=== PATIENT | male | born 1965 | race African-American/Black ===

== ENCOUNTER 2020-09-16 16:28 | Emergency (ER) | payer SELFPAY | END 2020-09-16 18:15 | disposition home or self-care (01) | LOC: ERS 16:28 | DX: L03.011 Cellulitis of right finger (principal); Z87.891 Personal history of nicotine dependence ==

== ENCOUNTER 2020-10-01 19:05 | Emergency (ER) | payer SELFPAY ==
[2020-10-01] MEDS ORDERED: Lidocaine 1% PF 5 ML VIAL ONE (20:19)
[2020-10-01] MEDS ORDERED: Bupivacaine 0.5% 10 ML VIAL ONE ×2 (20:19→21:00)
[2020-10-01] MEDS ORDERED: Lidocaine 4% Cream 5 GM TUBE w/ Tegaderm ONE (20:59)
== END 2020-10-01 23:05 | disposition home or self-care (01) ==
LOC: ERS 19:05
DX: L03.011 Cellulitis of right finger (principal); F17.210 Nicotine dependence, cigarettes, uncomplicated
CPT/HCPCS: 10060; J3490

== ENCOUNTER 2020-10-08 21:07 | Inpatient (IN) | payer SELFPAY ==
[2020-10-08 23:54] LABS: #Eosinphils 0.2 thou/uL (0.0-0.7); #Lymphocytes 2.5 thou/uL (1.20-3.40); #Monocytes 0.3 thou/uL (0.11-0.59); #Neutrophils 4.1 thou/uL (1.40-6.50); %Basophils 0.6 % (0.0-1.0); %Eosinophils 3.5 % (0.0-10.0); %Lymphocytes 35.2 % (21.0-51.0); %Monocytes 4.2 % (0.0-10.0); %Neutrophils 56.5 % (42.0-75.0); Hemoglobin 15.8 g/dL (14.0-18.0); Mean Corpuscular Hemoglobin 28.6 pg (27.0-31.0); Mean Corpuscular Volume 86.5 fL (78.0-98.0); Mean Platelet Volume 7.9 fL (7.4-10.4); Platelet Count 240 thou/uL (130-400); RBC Distribution Width 13.4 % (11.5-14.5); Red Blood Cell (RBC) Count 5.53 mill/uL (4.70-6.10); White Blood Cell (WBC) Count 7.2 thou/uL (4.8-10.8)
[2020-10-09 00:13] LABS: ALT (SGPT) 19 U/L (8-55); AST (SGOT) 14 U/L (5-34); Albumin 3.8 g/dL (3.5-5.0); Alkaline Phosphatase 80 U/L (40-110); Anion Gap 10 mmol/L (10-20); BUN (Urea Nitrogen) 12 mg/dL (8.4-25.7); Bilirubin, Total 0.3 mg/dL (0.2-1.2); Calc. Creatinine Clearance 0 mL/min (70-130); Calcium 9.5 mg/dL (7.8-10.44); Carbon Dioxide 23 mmol/L (22-29); Chloride 107 mmol/L (98-107); Globulin 3.5 g/dL (2.4-3.5); Glucose 145 mg/dL (70-105); Potassium 3.7 mmol/L (3.5-5.1); Protein, Total 7.3 g/dL (6.0-8.3); Sodium 136 mmol/L (136-145)
[2020-10-09] MEDS ORDERED: Morphine 4 MG/ML VIAL ONE (01:31)
[2020-10-09] MEDS ORDERED: Clindamycin/D5W 600 mg/50 ml Premix Bag ONE (01:31)
[2020-10-09] MEDS ORDERED: Ondansetron PF 4 MG/2 ML Vial ONE (01:31)
[2020-10-09] MEDS: traMADol HCl 50 MG TAB PO PRN ×2 (04:10→10:18)
[2020-10-09] MEDS: Acetaminophen 500 MG TAB PO PRN ×2 (04:11→14:57)
[2020-10-09 06:28] VITALS: BMI 37.0
[2020-10-09] MEDS: Dextrose 5 % And 0.9 % NaCl 1,000 ML IV SCH ×2 (06:51→14:59)
[2020-10-09] MEDS: Ampicillin/Sulbactam 3 GM in Sodium Chloride 0.9% 100 ML IVPB SCH ×3 (09:56→21:06)
[2020-10-09 11:00] LABS: SARS-CoV-2 PCR by NAA Not Detected (NotDetected)
[2020-10-09] MEDS ORDERED: CEFAZOLIN 2 GM in Premix Bag 1 BAG IVPB SCH (14:15)
[2020-10-09] MEDS ORDERED: NIFEdipine XL 60 MG TAB PO SCH (18:00)
[2020-10-09] MEDS ORDERED: hydrALAZINE 20 MG/ML VIAL SLOW IVP PRN (18:01)
[2020-10-09] MEDS ORDERED: Labetalol HCl 100 MG/20 ML VIAL SLOW IVP PRN (18:01)
[2020-10-09] MEDS ORDERED: cloNIDine 0.1 MG TAB PO PRN (18:10)
[2020-10-09] MEDS: Nicotine 14 MG PATCH TD SCH (21:06)
[2020-10-09] MEDS: HYDROcodone/Acetaminophen 10/325 mg Tablet PO PRN (21:06)
[2020-10-10] MEDS: Ampicillin/Sulbactam 3 GM in Sodium Chloride 0.9% 100 ML IVPB SCH ×4 (03:53→21:33)
[2020-10-10] MEDS: HYDROcodone/Acetaminophen 10/325 mg Tablet PO PRN (03:53)
[2020-10-10 05:28] LABS: #Basophils 0.1 thou/uL (0.0-0.2); #Eosinphils 0.2 thou/uL (0.0-0.7); #Lymphocytes 3.1 thou/uL (1.20-3.40); #Monocytes 0.5 thou/uL (0.11-0.59); #Neutrophils 4.1 thou/uL (1.40-6.50); %Basophils 0.9 % (0.0-1.0); %Eosinophils 2.9 % (0.0-10.0); %Lymphocytes 38.7 % (21.0-51.0); %Monocytes 6.3 % (0.0-10.0); %Neutrophils 51.2 % (42.0-75.0); Hemoglobin 16.3 g/dL (14.0-18.0); Mean Corpuscular HGB CONC 31.8 g/dL (32.0-36.0); Mean Corpuscular Hemoglobin 27.9 pg (27.0-31.0); Mean Corpuscular Volume 87.7 fL (78.0-98.0); Platelet Count 249 thou/uL (130-400); RBC Distribution Width 13.6 % (11.5-14.5); Red Blood Cell (RBC) Count 5.86 mill/uL (4.70-6.10)
[2020-10-10 05:44] LABS: Anion Gap 12 mmol/L (10-20); BUN (Urea Nitrogen) 13 mg/dL (8.4-25.7); Calc. Creatinine Clearance 124 mL/min (70-130); Calcium 9.6 mg/dL (7.8-10.44); Carbon Dioxide 22 mmol/L (22-29); Chloride 105 mmol/L (98-107); Glucose 105 mg/dL (70-105); Potassium 4.2 mmol/L (3.5-5.1); Sodium 135 mmol/L (136-145)
[2020-10-10] MEDS ORDERED: Fentanyl 100 MCG/2 ML VIAL ONE ×2 (16:49→18:11)
[2020-10-10] MEDS ORDERED: Bacitracin Zinc Ointment 30 gm TUBE ONE (16:58)
[2020-10-10] MEDS ORDERED: Bupivacaine PF 0.5% 30 ML VIAL ONE (16:58)
[2020-10-10] MEDS ORDERED: Thrombin 5000 UNITS/5 ML VIAL ONE (16:58)
[2020-10-10] MEDS ORDERED: Neomycin-Polymyxin 1 ML AMP ONE (16:58)
[2020-10-10] MEDS ORDERED: PROPOFOL 200 MG/20 ML VIAL ONE (17:42)
[2020-10-10] MEDS ORDERED: Ondansetron PF 4 MG/2 ML Vial ONE (17:42)
[2020-10-10] MEDS ORDERED: ePHEDrine Sulfate 50 MG/10 ML VIAL ONE (17:42)
[2020-10-10] MEDS ORDERED: PHENYLEPHRINE-NS 100 MCG/ML 10 ML SYRINGE ONE (17:42)
[2020-10-10] MEDS ORDERED: Tobramycin Sulfate 1.2 GM VIAL ONE ×2 (18:19→18:22)
[2020-10-10] MEDS ORDERED: Tobramycin 80 MG/2 ML VIAL ONE (18:21)
[2020-10-10] MEDS ORDERED: Promethazine HCl 25 MG/ML VIAL IVPB PRN (19:16)
[2020-10-10] MEDS ORDERED: HYDROmorphone 2 MG/ML VIAL SLOW IVP PRN (19:16)
[2020-10-10] MEDS ORDERED: PACU-Morphine 4MG/ML VIAL SLOW IVP PRN (19:16)
[2020-10-10] MEDS ORDERED: Promethazine HCl 25 MG/ML VIAL IM PRN (19:16)
[2020-10-10] MEDS ORDERED: Ondansetron HCl/PF 4 MG/2 ML Vial IVP PRN (19:16)
[2020-10-10] MEDS ORDERED: hydrALAZINE 20 MG/ML VIAL SLOW IVP PRN (19:17)
[2020-10-10] MEDS ORDERED: Ketorolac Tromethamine 30 MG/ML VIAL ONE (19:28)
[2020-10-10] MEDS: NIFEdipine XL 90 MG TAB PO SCH (20:54)
[2020-10-10] MEDS: Nicotine 14 MG PATCH TD SCH (21:34)
[2020-10-11] MEDS: Ketorolac Tromethamine 30 MG/ML VIAL IVP SCH ×4 (00:59→20:25)
[2020-10-11] MEDS: Ampicillin/Sulbactam 3 GM in Sodium Chloride 0.9% 100 ML IVPB SCH ×4 (03:11→20:26)
[2020-10-11] MEDS: Morphine 4 MG/ML VIAL SLOW IVP PRN ×4 (03:11→17:07)
[2020-10-11] MEDS: HYDROcodone/Acetaminophen 10/325 mg Tablet PO PRN ×4 (09:09→23:55)
[2020-10-11] MEDS: Carvedilol 6.25 MG TAB PO SCH ×2 (09:09→16:18)
[2020-10-11] MEDS: NIFEdipine XL 90 MG TAB PO SCH (17:09)
[2020-10-11] MEDS: Nicotine 14 MG PATCH TD SCH (23:31)
[2020-10-11] MEDS: Acetaminophen 500 MG TAB PO PRN (23:56)
[2020-10-12] MEDS: Ketorolac Tromethamine 30 MG/ML VIAL IVP SCH ×3 (02:02→14:12)
[2020-10-12] MEDS: Morphine 4 MG/ML VIAL SLOW IVP PRN (02:02)
[2020-10-12] MEDS: HYDROcodone/Acetaminophen 10/325 mg Tablet PO PRN ×3 (05:09→14:12)
[2020-10-12] MEDS: Ampicillin/Sulbactam 3 GM in Sodium Chloride 0.9% 100 ML IVPB SCH ×2 (05:09→09:13)
[2020-10-12] MEDS: Carvedilol 6.25 MG TAB PO SCH (09:13)
[2020-10-12 12:43] VITALS: BP 158/111; TEMP 98.5
== END 2020-10-12 15:24 | disposition home or self-care (01) | DRG 516 ==
LOC: ERS 21:07 → SURG A 10-09 02:05 → OBSVTOIN 10-09 16:45
PROVIDERS: ADMIT Student in an Organized Health Care Education/Training Program; ATTEND Internal Medicine
PROC: 0PBR0ZZ Excision of Right Thumb Phalanx, Open Approach (ICD-10-PCS; principal; 2020-10-09)
DX: M86.141 Other acute osteomyelitis, right hand (principal); L02.511 Cutaneous abscess of right hand; L03.011 Cellulitis of right finger; I10 Essential (primary) hypertension; E66.01 Morbid (severe) obesity due to excess calories; F17.210 Nicotine dependence, cigarettes, uncomplicated; Z68.37 Body mass index [BMI] 37.0-37.9, adult
CPT/HCPCS: 36415; 76000; 80048; 80053; 85025; 85652; 86140; 87070; 87205; 88305; 96365; 96375; C1713; G0378; J0295; J0690; J1885; J2270; J2405; J2704; J3010; J3260; J3490; S0020; U0003; U0005

== ENCOUNTER 2020-11-24 17:04 | Inpatient (IN) | payer SELFPAY ==
[~2020-11-24 17:04] MED LIST: Iopamidol-370 76% 500 ML 1 ML ONE
[2020-11-24] MEDS ORDERED: Ketorolac Tromethamine 30 MG/ML VIAL ONE (17:44)
[2020-11-24] MEDS ORDERED: Acetaminophen 500 MG TAB ONE (17:44)
[2020-11-24 18:02] LABS: Hemoglobin 14.9 g/dL (14.0-18.0); Mean Corpuscular HGB CONC 33.2 g/dL (32.0-36.0); Mean Corpuscular Hemoglobin 28.4 pg (27.0-31.0); Mean Corpuscular Volume 85.5 fL (78.0-98.0); Mean Platelet Volume 7.6 fL (7.4-10.4); Platelet Count 187 thou/uL (130-400); RBC Distribution Width 13.9 % (11.5-14.5); Red Blood Cell (RBC) Count 5.23 mill/uL (4.70-6.10); White Blood Cell (WBC) Count 4.7 thou/uL (4.8-10.8)
[2020-11-24 18:30] LABS: Band 14 % (5-11); Lymphocytes 31 % (21-51); MDiff Complete? YES; Monocytes 18 % (0-10); Neutrophil 35 % (42-75); Nucleated RBC 1 % (0); Platelet Morphology Comment Appears Adequate; RBC Morphology Normal; Reactive Lymphocytes 1 % (0-10)
[2020-11-24 18:49] LABS: CKMB 1.1 ng/mL (0-6.6)
[2020-11-24 18:53] LABS: SARS-CoV-2 NAA Rapid Test DETECTED (NotDetected)
[2020-11-24 19:02] LABS: ALT (SGPT) 30 U/L (8-55); AST (SGOT) 32 U/L (5-34); Albumin 3.6 g/dL (3.5-5.0); Alkaline Phosphatase 71 U/L (40-110); Anion Gap 11 mmol/L (10-20); BUN (Urea Nitrogen) 8 mg/dL (8.4-25.7); Bilirubin, Total 0.3 mg/dL (0.2-1.2); Calc. Creatinine Clearance 0 mL/min (70-130); Calcium 9.2 mg/dL (7.8-10.44); Carbon Dioxide 23 mmol/L (22-29); Chloride 102 mmol/L (98-107); Globulin 3.9 g/dL (2.4-3.5); Glucose 128 mg/dL (70-105); Potassium 4.1 mmol/L (3.5-5.1); Protein, Total 7.5 g/dL (6.0-8.3); Sodium 132 mmol/L (136-145)
[2020-11-24 19:18] LABS: Bacteria/HPF None Seen HPF (None Seen); Bilirubin Negative (Negative); Blood, Urine Negative (Negative); Clarity Clear (Clear); Glucose, Urine (Dipstick) Normal (Negative); Ketone, Urine Negative (Negative); Leukocyte Negative Leu/uL (Negative); Nitrite Negative (Negative); Protein, Urine (Dipstick) 100 mg/dL (Neg-Trace); RBC/HPF 0-3 HPF (0-3); Squamous Epithelial None Seen HPF (0-3); Urobilinogen Normal mg/dL (Less than 2); WBC/HPF 0-3 HPF (0-3)
[2020-11-24 23:56] LABS: Troponin I 0.064 ng/mL (< 0.028)
[2020-11-25] MEDS ORDERED: Aspirin Chewable 81 MG TAB ONE ×2 (00:04→09:07)
[2020-11-25] MEDS ORDERED: Pharmacy to Dose REMDESIVIR IVPB PRN (01:18)
[2020-11-25] MEDS ORDERED: Acetaminophen 650 MG Suppository PR PRN (01:22)
[2020-11-25] MEDS ORDERED: Ondansetron ODT 4 MG TAB PO PRN (01:22)
[2020-11-25] MEDS ORDERED: Ondansetron PF 4 MG/2 ML Vial IVP PRN (01:22)
[2020-11-25] MEDS ORDERED: Ivermectin 3 MG TAB PO SCH (01:30)
[2020-11-25] MEDS ORDERED: Nitroglycerin 0.4 MG TAB (25 Tab Bottle) SL PRN (01:47)
[2020-11-25 02:24] LABS: Troponin I 0.075 ng/mL (< 0.028)
[2020-11-25] MEDS ORDERED: Acetaminophen 325 MG TAB ONE ×2 (05:09→13:53)
[2020-11-25] MEDS: Acetaminophen 325 MG TAB PO PRN ×3 (05:12→21:53)
[2020-11-25 06:48] LABS: #Lymphocytes 1.4 thou/uL (1.20-3.40); #Monocytes 0.6 thou/uL (0.11-0.59); #Neutrophils 1.8 thou/uL (1.40-6.50); %Eosinophils 0.3 % (0.0-10.0); %Lymphocytes 35.7 % (21.0-51.0); %Monocytes 14.9 % (0.0-10.0); %Neutrophils 48.2 % (42.0-75.0); Hemoglobin 15.9 g/dL (14.0-18.0); Mean Corpuscular HGB CONC 32.2 g/dL (32.0-36.0); Mean Corpuscular Hemoglobin 27.9 pg (27.0-31.0); Mean Corpuscular Volume 86.7 fL (78.0-98.0); Mean Platelet Volume 7.8 fL (7.4-10.4); Platelet Count 192 thou/uL (130-400); RBC Distribution Width 13.9 % (11.5-14.5); White Blood Cell (WBC) Count 3.8 thou/uL (4.8-10.8)
[2020-11-25 07:14] LABS: Anion Gap 11 mmol/L (10-20); BUN (Urea Nitrogen) 9 mg/dL (8.4-25.7); Calc. Creatinine Clearance 0 mL/min (70-130); Calcium 9.2 mg/dL (7.8-10.44); Carbon Dioxide 24 mmol/L (22-29); Cardiac Risk 5.4 (Less than 4.5); Chloride 104 mmol/L (98-107); Cholesterol 185 mg/dl (< 200 Desired); Glucose 118 mg/dL (70-105); HDL Cholesterol 34 mg/dL (>60 Neg Risk); LDL Cholesterol, Calculated 121 mg/dL; Potassium 3.9 mmol/L (3.5-5.1); Sodium 135 mmol/L (136-145); Triglycerides 149 mg/dL (Less than 150)
[2020-11-25] MEDS ORDERED: Amlodipine 5 MG TAB PO SCH (09:00)
[2020-11-25] MEDS ORDERED: Famotidine 20 MG TAB ONE (09:07)
[2020-11-25] MEDS: Zinc Sulfate 220 MG CAP PO SCH (10:00)
[2020-11-25] MEDS: Ascorbic Acid 500 mg Chewable Tablet PO SCH (10:00)
[2020-11-25] MEDS: Famotidine 20 MG TAB PO SCH ×2 (10:00→21:51)
[2020-11-25] MEDS: Ivermectin 3 MG TAB PO SCH (10:00)
[2020-11-25] MEDS: Cholecalciferol 1,000 UNITS (25 MCG) TAB PO SCH (10:00)
[2020-11-25] MEDS: Aspirin 81 mg Enteric Coated Tablet PO SCH (10:00)
[2020-11-25] MEDS: Colchicine 0.6 MG TAB PO SCH ×2 (10:00→21:51)
[2020-11-25 17:11] LABS: HIV (1/2) Antibody/Antigen Non-Reactive (NonReactive); HIV 1/2 INDEX 0.12 S/CO (<1.00)
[2020-11-25] MEDS ORDERED: Ibuprofen 200 MG TAB PO SCH (17:30)
[2020-11-25] MEDS ORDERED: REMDESIVIR 200 MG in Sodium Chloride 0.9% 250 ML 210 ML IV SCH (17:45)
[2020-11-25] MEDS: Enoxaparin Sodium 40 MG/0.4 ML SYRINGE SC SCH (21:51)
[2020-11-26] MEDS: Acetaminophen 325 MG TAB PO PRN ×2 (04:45→13:52)
[2020-11-26 05:23] LABS: #Lymphocytes 1.6 thou/uL (1.20-3.40); #Monocytes 0.5 thou/uL (0.11-0.59); #Neutrophils 2.4 thou/uL (1.40-6.50); %Basophils 0.9 % (0.0-1.0); %Eosinophils 0.4 % (0.0-10.0); %Lymphocytes 34.8 % (21.0-51.0); %Monocytes 11.2 % (0.0-10.0); %Neutrophils 52.7 % (42.0-75.0); Hemoglobin 15.5 g/dL (14.0-18.0); Mean Corpuscular HGB CONC 31.2 g/dL (32.0-36.0); Mean Corpuscular Volume 86.8 fL (78.0-98.0); Mean Platelet Volume 8.2 fL (7.4-10.4); Platelet Count 170 thou/uL (130-400); RBC Distribution Width 13.9 % (11.5-14.5); Red Blood Cell (RBC) Count 5.72 mill/uL (4.70-6.10); White Blood Cell (WBC) Count 4.6 thou/uL (4.8-10.8)
[2020-11-26 05:44] LABS: ALT (SGPT) 33 U/L (8-55); AST (SGOT) 34 U/L (5-34); Albumin 3.5 g/dL (3.5-5.0); Alkaline Phosphatase 80 U/L (40-110); Anion Gap 11 mmol/L (10-20); BUN (Urea Nitrogen) 10 mg/dL (8.4-25.7); Bilirubin, Total 0.3 mg/dL (0.2-1.2); Calc. Creatinine Clearance 96 mL/min (70-130); Calcium 9.4 mg/dL (7.8-10.44); Carbon Dioxide 27 mmol/L (22-29); Chloride 102 mmol/L (98-107); Globulin 3.9 g/dL (2.4-3.5); Glucose 105 mg/dL (70-105); Potassium 4.3 mmol/L (3.5-5.1); Protein, Total 7.4 g/dL (6.0-8.3); Sodium 136 mmol/L (136-145)
[2020-11-26] MEDS: Colchicine 0.6 MG TAB PO SCH ×2 (08:16→21:20)
[2020-11-26] MEDS: Cholecalciferol 1,000 UNITS (25 MCG) TAB PO SCH (08:16)
[2020-11-26] MEDS: Ascorbic Acid 500 mg Chewable Tablet PO SCH (08:19)
[2020-11-26] MEDS: Aspirin 81 mg Enteric Coated Tablet PO SCH (08:19)
[2020-11-26] MEDS: Famotidine 20 MG TAB PO SCH ×2 (08:19→21:20)
[2020-11-26] MEDS: Amlodipine 10 MG TAB PO SCH (08:19)
[2020-11-26] MEDS: Ivermectin 3 MG TAB PO SCH (08:20)
[2020-11-26] MEDS: Enoxaparin Sodium 40 MG/0.4 ML SYRINGE SC SCH ×2 (08:20→21:20)
[2020-11-26] MEDS: Zinc Sulfate 220 MG CAP PO SCH (08:21)
[2020-11-26 12:19] LABS: HBSAB Concentration Less than 8.00 mIU/mL; HIV (1/2) Antibody/Antigen Non-Reactive (NonReactive); HIV 1/2 INDEX 0.09 S/CO (<1.00); Hep B Surf AB Non-Reactive (NonReactive); Hep C IgG Ab Non-Reactive (NonReactive); Hep C Index 0.05 S/CO (0-0.79)
[2020-11-26] MEDS: Ipratropium/Albuterol Sulfate 4 GM AER IH SCH ×2 (13:51→18:43)
[2020-11-26] MEDS: Ibuprofen 600 MG TAB PO PRN (15:55)
[2020-11-26] MEDS ORDERED: REMDESIVIR 100 MG in Sodium Chloride 0.9% 250 ML 230 ML IV SCH (17:45)
[2020-11-27] MEDS: FlunisoLIDE 0.025% Nasal Spray 25 ml Bottle EA NARE SCH ×2 (00:23→09:00)
[2020-11-27] MEDS: Ipratropium/Albuterol Sulfate 4 GM AER IH SCH ×2 (01:09→05:55)
[2020-11-27] MEDS: Acetaminophen 325 MG TAB PO PRN (05:54)
[2020-11-27 06:45] LABS: #Lymphocytes 1.6 thou/uL (1.20-3.40); #Monocytes 0.3 thou/uL (0.11-0.59); #Neutrophils 1.7 thou/uL (1.40-6.50); %Basophils 0.7 % (0.0-1.0); %Eosinophils 0.2 % (0.0-10.0); %Lymphocytes 43.1 % (21.0-51.0); %Monocytes 8.6 % (0.0-10.0); %Neutrophils 47.5 % (42.0-75.0); Hemoglobin 16.4 g/dL (14.0-18.0); Mean Corpuscular HGB CONC 31.4 g/dL (32.0-36.0); Mean Corpuscular Hemoglobin 26.7 pg (27.0-31.0); Mean Platelet Volume 8.6 fL (7.4-10.4); Platelet Count 155 thou/uL (130-400); RBC Distribution Width 13.8 % (11.5-14.5); Red Blood Cell (RBC) Count 6.16 mill/uL (4.70-6.10); White Blood Cell (WBC) Count 3.6 thou/uL (4.8-10.8)
[2020-11-27 07:06] LABS: Anion Gap 12 mmol/L (10-20); BUN (Urea Nitrogen) 11 mg/dL (8.4-25.7); CRP (Inflammatory) 0.93 mg/dL (= or < 0.5); Calc. Creatinine Clearance 106 mL/min (70-130); Carbon Dioxide 23 mmol/L (22-29); Chloride 102 mmol/L (98-107); Glucose 109 mg/dL (70-105); Potassium 4.1 mmol/L (3.5-5.1); Sodium 133 mmol/L (136-145)
[2020-11-27] MEDS: Ivermectin 3 MG TAB PO SCH (08:47)
[2020-11-27] MEDS: Ibuprofen 600 MG TAB PO PRN (08:47)
[2020-11-27] MEDS: Zinc Sulfate 220 MG CAP PO SCH (08:48)
[2020-11-27] MEDS: Aspirin 81 mg Enteric Coated Tablet PO SCH (08:48)
[2020-11-27] MEDS: Cholecalciferol 1,000 UNITS (25 MCG) TAB PO SCH (08:48)
[2020-11-27] MEDS: Ascorbic Acid 500 mg Chewable Tablet PO SCH (08:48)
[2020-11-27] MEDS: Famotidine 20 MG TAB PO SCH (08:48)
[2020-11-27] MEDS: Amlodipine 10 MG TAB PO SCH (08:48)
[2020-11-27] MEDS: Colchicine 0.6 MG TAB PO SCH (08:48)
[2020-11-27] MEDS: Enoxaparin Sodium 40 MG/0.4 ML SYRINGE SC SCH (08:49)
[2020-11-27 11:41] VITALS: BP 111/78; TEMP 98.6
== END 2020-11-27 13:30 | disposition home or self-care (01) | DRG 177 ==
LOC: ERS 17:04 → ERHOLD 22:54 → OBSVTOIN 22:54 → 2SW 11-25 14:50 → T4-A 11-26 23:14
PROVIDERS: ADMIT Internal Medicine; ATTEND Internal Medicine
PROC: 8E0ZXY6 Isolation (ICD-10-PCS; principal; 2020-11-24)
DX: U07.1 COVID-19 (principal); J12.82 Pneumonia due to coronavirus disease 2019; M86.8X8 Other osteomyelitis, other site; I10 Essential (primary) hypertension; F17.210 Nicotine dependence, cigarettes, uncomplicated; R77.8 Other specified abnormalities of plasma proteins; R91.1 Solitary pulmonary nodule; E66.01 Morbid (severe) obesity due to excess calories; J98.4 Other disorders of lung; L03.011 Cellulitis of right finger; Z79.51 Long term (current) use of inhaled steroids; Z79.899 Other long term (current) drug therapy; Z79.2 Long term (current) use of antibiotics; Z68.35 Body mass index [BMI] 35.0-35.9, adult
CPT/HCPCS: 0240U; 36415; 71275; 80048; 80053; 80061; 81003; 81015; 82553; 82728; 83605; 83880; 84145; 84443; 84484; 85025; 86140; 86706; 86803; 86850; 86900; 86901; 87040; 87086; 87389; 93005; 93880; 96374; J1650; J1885; Q9967

== ENCOUNTER 2020-12-02 01:48 | Inpatient (IN) | payer SELFPAY ==
[2020-12-02] MEDS ORDERED: Albuterol 200 PUFF (6.7GM INHALER) ONE (02:13)
[2020-12-02 02:22] LABS: #Lymphocytes 1.4 thou/uL (1.20-3.40); #Monocytes 0.5 thou/uL (0.11-0.59); #Neutrophils 4.3 thou/uL (1.40-6.50); %Basophils 0.5 % (0.0-1.0); %Eosinophils 0.1 % (0.0-10.0); %Lymphocytes 22.8 % (21.0-51.0); %Monocytes 7.9 % (0.0-10.0); %Neutrophils 68.6 % (42.0-75.0); Hemoglobin 16.2 g/dL (14.0-18.0); Mean Corpuscular Hemoglobin 28.9 pg (27.0-31.0); Mean Platelet Volume 8.3 fL (7.4-10.4); Platelet Count 209 thou/uL (130-400); RBC Distribution Width 13.8 % (11.5-14.5); Red Blood Cell (RBC) Count 5.61 mill/uL (4.70-6.10); White Blood Cell (WBC) Count 6.2 thou/uL (4.8-10.8)
[2020-12-02 02:44] LABS: ALT (SGPT) 46 U/L (8-55); AST (SGOT) 62 U/L (5-34); Albumin 3.2 g/dL (3.5-5.0); Alkaline Phosphatase 101 U/L (40-110); Anion Gap 14 mmol/L (10-20); BUN (Urea Nitrogen) 14 mg/dL (8.4-25.7); Bilirubin, Total 0.6 mg/dL (0.2-1.2); Calc. Creatinine Clearance 0 mL/min (70-130); Calcium 8.8 mg/dL (7.8-10.44); Carbon Dioxide 22 mmol/L (22-29); Chloride 105 mmol/L (98-107); Globulin 4.2 g/dL (2.4-3.5); Glucose 109 mg/dL (70-105); Protein, Total 7.4 g/dL (6.0-8.3); Sodium 137 mmol/L (136-145)
[2020-12-02 03:05] LABS: CKMB 2.1 ng/mL (0-6.6)
[2020-12-02] MEDS ORDERED: Aspirin 325 MG TAB ONE (04:02)
[2020-12-02] MEDS ORDERED: Enoxaparin Sodium 60 MG/0.6 ML SYRINGE ONE (04:04)
[2020-12-02 06:38] LABS: Troponin I 0.078 ng/mL (< 0.028)
[2020-12-02] MEDS ORDERED: Iopamidol-370 76% 500 ML 1 ML ONE (09:11)
[2020-12-02 09:20] LABS: Troponin I 0.063 ng/mL (< 0.028)
[2020-12-02] MEDS ORDERED: Acetaminophen 325 MG TAB ONE (12:30)
[2020-12-02] MEDS ORDERED: Nitroglycerin 0.4 MG TAB (25 Tab Bottle) SL PRN (16:56)
[2020-12-02] MEDS ORDERED: Ondansetron ODT 4 MG TAB PO PRN (16:56)
[2020-12-02] MEDS ORDERED: Ondansetron PF 4 MG/2 ML Vial IVP PRN (16:56)
[2020-12-02] MEDS ORDERED: Benzonatate 100 MG CAP PO PRN (16:56)
[2020-12-02] MEDS ORDERED: hydrALAZINE 20 MG/ML VIAL SLOW IVP PRN (16:56)
[2020-12-02 17:25] VITALS: BMI 36.6
[2020-12-02] MEDS ORDERED: Albuterol 200 PUFF (6.7GM INHALER) INH PRN (17:42)
[2020-12-02] MEDS: Nicotine 14 MG PATCH TD SCH (18:35)
[2020-12-02] MEDS: Enoxaparin Sodium 40 MG/0.4 ML SYRINGE SC SCH (20:16)
[2020-12-02] MEDS: Metoprolol Tartrate 25 MG TAB PO SCH (20:16)
[2020-12-02] MEDS: Acetaminophen 500 MG TAB PO PRN (20:16)
[2020-12-02] MEDS: Colchicine 0.6 MG TAB PO SCH (20:16)
[2020-12-02] MEDS: Dexamethasone 10 MG/ML VIAL SLOW IVP SCH (20:17)
[2020-12-02] MEDS: Famotidine 20 MG TAB PO SCH (20:17)
[2020-12-03] MEDS: Guaifenesin DM 100-10/5 ML UDCUP PO PRN ×2 (04:47→19:46)
[2020-12-03 05:02] LABS: Mean Corpuscular HGB CONC 32.7 g/dL (32.0-36.0); Mean Corpuscular Hemoglobin 27.7 pg (27.0-31.0); Mean Corpuscular Volume 84.7 fL (78.0-98.0); Mean Platelet Volume 8.2 fL (7.4-10.4); Platelet Count 284 thou/uL (130-400); RBC Distribution Width 13.8 % (11.5-14.5); Red Blood Cell (RBC) Count 5.79 mill/uL (4.70-6.10); White Blood Cell (WBC) Count 5.6 thou/uL (4.8-10.8)
[2020-12-03 05:11] LABS: Anion Gap 16 mmol/L (10-20); BUN (Urea Nitrogen) 16 mg/dL (8.4-25.7); Calc. Creatinine Clearance 125 mL/min (70-130); Calcium 9.4 mg/dL (7.8-10.44); Carbon Dioxide 21 mmol/L (22-29); Cardiac Risk 5.3 (Less than 4.5); Chloride 105 mmol/L (98-107); Cholesterol 186 mg/dl (< 200 Desired); Glucose 176 mg/dL (70-105); HDL Cholesterol 35 mg/dL (>60 Neg Risk); LDL Cholesterol, Calculated 124 mg/dL; Potassium 4.7 mmol/L (3.5-5.1); Sodium 137 mmol/L (136-145); Triglycerides 137 mg/dL (Less than 150)
[2020-12-03 06:33] LABS: Band 33 % (5-11); Lymphocytes 21 % (21-51); MDiff Complete? YES; Monocytes 5 % (0-10); Neutrophil 41 % (42-75)
[2020-12-03] MEDS: Cholecalciferol (Vitamin D3) 400 UNITS TAB PO SCH (09:25)
[2020-12-03] MEDS: Zinc Sulfate 220 MG CAP PO SCH (09:25)
[2020-12-03] MEDS: Colchicine 0.6 MG TAB PO SCH ×2 (09:25→19:47)
[2020-12-03] MEDS: Aspirin Chewable 81 MG TAB PO SCH (09:25)
[2020-12-03] MEDS: Ascorbic Acid 500 mg Chewable Tablet PO SCH (09:26)
[2020-12-03] MEDS: Ivermectin 3 MG TAB PO SCH (09:26)
[2020-12-03] MEDS: Enoxaparin Sodium 40 MG/0.4 ML SYRINGE SC SCH ×2 (09:26→19:46)
[2020-12-03] MEDS: Famotidine 20 MG TAB PO SCH ×2 (09:26→19:48)
[2020-12-03] MEDS: Metoprolol Tartrate 25 MG TAB PO SCH ×2 (09:27→19:47)
[2020-12-03] MEDS: Dexamethasone 10 MG/ML VIAL SLOW IVP SCH ×2 (09:31→19:46)
[2020-12-03] MEDS: Nicotine 14 MG PATCH TD SCH (18:26)
[2020-12-04] MEDS: Guaifenesin DM 100-10/5 ML UDCUP PO PRN (04:17)
[2020-12-04] MEDS: Enoxaparin Sodium 40 MG/0.4 ML SYRINGE SC SCH ×2 (09:25→20:19)
[2020-12-04] MEDS: Ivermectin 3 MG TAB PO SCH (09:25)
[2020-12-04] MEDS: Colchicine 0.6 MG TAB PO SCH ×2 (09:25→20:08)
[2020-12-04] MEDS: Ascorbic Acid 500 mg Chewable Tablet PO SCH (09:25)
[2020-12-04] MEDS: Metoprolol Tartrate 25 MG TAB PO SCH ×2 (09:26→19:56)
[2020-12-04] MEDS: Cholecalciferol (Vitamin D3) 400 UNITS TAB PO SCH (09:26)
[2020-12-04] MEDS: Zinc Sulfate 220 MG CAP PO SCH (09:26)
[2020-12-04] MEDS: Aspirin Chewable 81 MG TAB PO SCH (09:26)
[2020-12-04] MEDS: Dexamethasone 10 MG/ML VIAL SLOW IVP SCH ×2 (09:26→20:08)
[2020-12-04] MEDS: Famotidine 20 MG TAB PO SCH ×2 (09:26→19:56)
[2020-12-04] MEDS: Nicotine 14 MG PATCH TD SCH (17:20)
[2020-12-05] MEDS: Ivermectin 3 MG TAB PO SCH (09:29)
[2020-12-05] MEDS: Enoxaparin Sodium 40 MG/0.4 ML SYRINGE SC SCH ×2 (09:29→23:02)
[2020-12-05] MEDS: Metoprolol Tartrate 25 MG TAB PO SCH ×2 (09:30→23:01)
[2020-12-05] MEDS: Zinc Sulfate 220 MG CAP PO SCH (09:30)
[2020-12-05] MEDS: Cholecalciferol (Vitamin D3) 400 UNITS TAB PO SCH (09:30)
[2020-12-05] MEDS: Ascorbic Acid 500 mg Chewable Tablet PO SCH (09:30)
[2020-12-05] MEDS: Famotidine 20 MG TAB PO SCH ×2 (09:30→23:01)
[2020-12-05] MEDS: Colchicine 0.6 MG TAB PO SCH ×2 (09:30→23:01)
[2020-12-05] MEDS: Aspirin Chewable 81 MG TAB PO SCH (09:30)
[2020-12-05] MEDS: Dexamethasone 10 MG/ML VIAL SLOW IVP SCH ×2 (09:31→23:02)
[2020-12-05] MEDS: Acetaminophen 500 MG TAB PO PRN (12:19)
[2020-12-05] MEDS: Nicotine 14 MG PATCH TD SCH (17:14)
[2020-12-06] MEDS: Enoxaparin Sodium 40 MG/0.4 ML SYRINGE SC SCH ×2 (11:43→20:39)
[2020-12-06] MEDS: Metoprolol Tartrate 25 MG TAB PO SCH ×2 (11:43→20:38)
[2020-12-06] MEDS: Cholecalciferol (Vitamin D3) 400 UNITS TAB PO SCH (11:43)
[2020-12-06] MEDS: Aspirin Chewable 81 MG TAB PO SCH (11:43)
[2020-12-06] MEDS: Colchicine 0.6 MG TAB PO SCH ×2 (11:43→20:38)
[2020-12-06] MEDS: Ivermectin 3 MG TAB PO SCH (11:45)
[2020-12-06] MEDS: Famotidine 20 MG TAB PO SCH ×2 (11:45→20:38)
[2020-12-06] MEDS: Dexamethasone 10 MG/ML VIAL SLOW IVP SCH ×2 (11:46→20:39)
[2020-12-06] MEDS: Zinc Sulfate 220 MG CAP PO SCH (11:46)
[2020-12-06] MEDS: Ascorbic Acid 500 mg Chewable Tablet PO SCH (11:46)
[2020-12-06 13:58] VITALS: BP 163/103; TEMP 97.7
[2020-12-06] MEDS: Nicotine 14 MG PATCH TD SCH (17:24)
== END 2020-12-06 22:20 | disposition home or self-care (01) | DRG 177 ==
LOC: ERS 01:48 → ERHOLD 04:13 → 2SW 16:58
PROVIDERS: ADMIT Student in an Organized Health Care Education/Training Program; ATTEND Family Medicine
PROC: 8E0ZXY6 Isolation (ICD-10-PCS; principal; 2020-12-02)
DX: U07.1 COVID-19 (principal); J12.82 Pneumonia due to coronavirus disease 2019; J96.01 Acute respiratory failure with hypoxia; I21.A1 Myocardial infarction type 2; I50.32 Chronic diastolic (congestive) heart failure; F17.210 Nicotine dependence, cigarettes, uncomplicated; I11.0 Hypertensive heart disease with heart failure; R77.8 Other specified abnormalities of plasma proteins; E66.9 Obesity, unspecified; L03.011 Cellulitis of right finger; R91.1 Solitary pulmonary nodule; Z79.51 Long term (current) use of inhaled steroids; Z68.36 Body mass index [BMI] 36.0-36.9, adult; Z79.899 Other long term (current) drug therapy
CPT/HCPCS: 36415; 71045; 71275; 80048; 80053; 80061; 82553; 84145; 84484; 85025; 86140; 93005; 93306; 94760; 96372; J1100; J1650; Q9967

== ENCOUNTER 2021-02-12 20:36 | Emergency (ER) | payer SELFPAY ==
[2021-02-12] MEDS ORDERED: Acetaminophen 500 MG TAB ONE (21:52)
== END 2021-02-12 22:50 | disposition home or self-care (01) ==
LOC: ERS 20:36
DX: J02.9 Acute pharyngitis, unspecified (principal); I10 Essential (primary) hypertension
CPT/HCPCS: 87081; 87430; 99283

== ENCOUNTER 2021-02-25 20:03 | Inpatient (IN) | payer SELFPAY ==
[2021-02-25 20:56] LABS: #Eosinphils 0.1 thou/uL (0.0-0.7); #Lymphocytes 2.4 thou/uL (1.20-3.40); #Monocytes 0.4 thou/uL (0.11-0.59); #Neutrophils 6.8 thou/uL (1.40-6.50); %Basophils 0.4 % (0.0-1.0); %Lymphocytes 24.6 % (21.0-51.0); %Monocytes 4.5 % (0.0-10.0); %Neutrophils 69.5 % (42.0-75.0); Hemoglobin 16.2 g/dL (14.0-18.0); Mean Corpuscular HGB CONC 33.6 g/dL (32.0-36.0); Mean Corpuscular Hemoglobin 29.4 pg (27.0-31.0); Mean Corpuscular Volume 87.5 fL (78.0-98.0); Mean Platelet Volume 7.9 fL (7.4-10.4); Platelet Count 280 thou/uL (130-400); White Blood Cell (WBC) Count 9.7 thou/uL (4.8-10.8)
[2021-02-25 21:17] LABS: ALT (SGPT) 27 U/L (8-55); AST (SGOT) 22 U/L (5-34); Albumin 3.8 g/dL (3.5-5.0); Alkaline Phosphatase 81 U/L (40-110); Anion Gap 15 mmol/L (10-20); BUN (Urea Nitrogen) 11 mg/dL (8.4-25.7); Bilirubin, Total 0.5 mg/dL (0.2-1.2); CK (CPK) 486 U/L (30-200); CRP (Inflammatory) 3.42 mg/dL (= or < 0.5); Calc. Creatinine Clearance 0 mL/min (70-130); Calcium 10.4 mg/dL (7.8-10.44); Carbon Dioxide 22 mmol/L (22-29); Chloride 105 mmol/L (98-107); Globulin 4.2 g/dL (2.4-3.5); Glucose 159 mg/dL (70-105); Potassium 4.1 mmol/L (3.5-5.1); Sodium 138 mmol/L (136-145)
[2021-02-25] MEDS ORDERED: Ondansetron PF 4 MG/2 ML Vial ONE (21:29)
[2021-02-25] MEDS ORDERED: Morphine 4 MG/ML VIAL ONE (21:29)
[2021-02-25] MEDS ORDERED: Morphine 4 MG/ML VIAL SLOW IVP PRN (23:05)
[2021-02-25] MEDS ORDERED: Ondansetron PF 4 MG/2 ML Vial IVP PRN (23:15)
[2021-02-25] MEDS ORDERED: Ondansetron ODT 4 MG TAB SL PRN (23:15)
[2021-02-25 23:22] VITALS: BMI 38.9
[2021-02-25] MEDS ORDERED: Piperacillin/Tazobactam 3.375 GM in Sodium Chloride 0.9% 100 ML IVPB SCH (23:30)
[2021-02-25] MEDS ORDERED: Vancomycin 1 GM in Premix Bag 1 BAG IVPB SCH (23:30)
[2021-02-25 23:49] LABS: Lactic Acid 1.1 mmol/L (0.5-2.2)
[2021-02-26] MEDS ORDERED: Acetaminophen 650 MG Suppository PR PRN (01:55)
[2021-02-26] MEDS ORDERED: Acetaminophen 325 MG TAB PO PRN (01:55)
[2021-02-26] MEDS ORDERED: Artificial Tear Sol 15 ML BOT EA EYE PRN (03:54)
[2021-02-26] MEDS ORDERED: Piperacillin/Tazobactam 3.375 GM in Sodium Chloride 0.9% 100 ML IVPB SCH (04:00)
[2021-02-26] MEDS ORDERED: Polyvinyl Alcohol 1.4%/Povidone 0.6% Opth Drops EA EYE PRN (04:14)
[2021-02-26 09:29] LABS: SARS-CoV-2 NAA Rapid Test Not Detected (NotDetected)
[2021-02-26] MEDS: VANCOMYCIN 1.25 GM/250 ML BAG 1.25 GM in Premix Bag 1 BAG IVPB SCH ×2 (09:33→21:35)
[2021-02-26] MEDS: Polyvinyl Alcohol 1.4%/Povidone 0.6% Opth Drops EA EYE PRN (09:39)
[2021-02-26] MEDS ORDERED: Morphine 2 MG/ML VIAL SLOW IVP PRN (10:25)
[2021-02-26] MEDS ORDERED: Non-Formulary Item 1 EACH (Albuterol Sulfate Hfa (Or) 200 PUFF Inh) INH PRN (10:25)
[2021-02-26] MEDS ORDERED: Morphine 4 MG/ML VIAL SLOW IVP PRN (10:28)
[2021-02-26] MEDS ORDERED: Albuterol 200 PUFF (6.7GM INHALER) INH PRN (10:29)
[2021-02-26] MEDS ORDERED: hydrALAZINE 20 MG/ML VIAL SLOW IVP PRN (11:20)
[2021-02-26] MEDS ORDERED: Metoprolol Tartrate 25 MG TAB PO SCH ×2 (11:30→21:00)
[2021-02-26] MEDS ORDERED: Bacitracin Zinc Ointment 30 gm TUBE ONE (17:44)
[2021-02-26] MEDS ORDERED: Neomycin-Polymyxin 1 ML AMP ONE (17:44)
[2021-02-26] MEDS ORDERED: Bupivacaine PF 0.5% 30 ML VIAL ONE (17:44)
[2021-02-26] MEDS ORDERED: Cefepime 1 GM in Sodium Chloride 0.9% 100 ML IVPB SCH (21:00)
[2021-02-26] MEDS: Colchicine 0.6 MG TAB PO SCH (21:34)
[2021-02-26] MEDS: HYDROcodone/Acetaminophen 5/325 mg Tablet PO PRN (22:02)
[2021-02-27] MEDS ORDERED: VANCOMYCIN IVPB PRN (07:41)
[2021-02-27] MEDS: Metoprolol Tartrate 25 MG TAB PO SCH ×2 (07:54→20:37)
[2021-02-27] MEDS ORDERED: Meperidine HCl/PF 25 MG/ML VIAL SLOW IVP PRN (08:17)
[2021-02-27] MEDS ORDERED: Promethazine HCl 25 MG/ML VIAL IVPB PRN ×2 (08:17→10:31)
[2021-02-27] MEDS ORDERED: Promethazine HCl 25 MG/ML VIAL IM PRN ×3 (08:17→12:15)
[2021-02-27] MEDS ORDERED: Ondansetron HCl/PF 4 MG/2 ML Vial IVP PRN ×2 (08:17→10:31)
[2021-02-27] MEDS ORDERED: Fentanyl 100 MCG/2 ML VIAL ONE (08:31)
[2021-02-27] MEDS ORDERED: Bupivacaine PF 0.5% 30 ML VIAL ONE (08:39)
[2021-02-27] MEDS ORDERED: Tobramycin Sulfate 1.2 GM VIAL ONE ×2 (08:48→10:18)
[2021-02-27] MEDS ORDERED: Nicotine 14 MG PATCH TD SCH (09:00)
[2021-02-27] MEDS ORDERED: ePHEDrine 50 MG/ML VIAL ONE (09:17)
[2021-02-27] MEDS ORDERED: Ondansetron PF 4 MG/2 ML Vial ONE (09:17)
[2021-02-27] MEDS ORDERED: Ketorolac Tromethamine 30 MG/ML VIAL ONE (09:17)
[2021-02-27] MEDS ORDERED: PHENYLEPHRINE-NS 100 MCG/ML 10 ML SYRINGE ONE (09:17)
[2021-02-27] MEDS ORDERED: Lidocaine 1% PF 5 ML VIAL ONE (09:17)
[2021-02-27] MEDS ORDERED: PROPOFOL 200 MG/20 ML VIAL ONE (09:17)
[2021-02-27] MEDS ORDERED: Phenylephrine 10 MG/ML VIAL ONE (09:40)
[2021-02-27] MEDS ORDERED: VANCOMYCIN 1.75 GM/350 ML BAG 1.75 GM in Premix Bag 1 BAG IVPB SCH (10:00)
[2021-02-27] MEDS ORDERED: PACU-Morphine 4MG/ML VIAL SLOW IVP PRN (10:31)
[2021-02-27] MEDS ORDERED: HYDROmorphone 2 MG/ML VIAL SLOW IVP PRN (10:31)
[2021-02-27] MEDS ORDERED: Meperidine HCl/PF 25 MG/ML VIAL IM PRN (12:15)
[2021-02-27] MEDS ORDERED: Neomycin-Polymyxin 1 ML AMP ONE (12:16)
[2021-02-27] MEDS ORDERED: Gentamicin Sulfate 80 MG in Premix Bag 1 BAG IVPB SCH (14:00)
[2021-02-27] MEDS: HYDROcodone/Acetaminophen 5/325 mg Tablet PO PRN ×2 (14:18→20:40)
[2021-02-27] MEDS: VANCOMYCIN 1.25 GM/250 ML BAG 1.25 GM in Premix Bag 1 BAG IVPB SCH ×2 (15:34→17:59)
[2021-02-27] MEDS: Ascorbic Acid 500 mg Chewable Tablet PO SCH (15:42)
[2021-02-27] MEDS: Nicotine 14 MG PATCH TD SCH (15:42)
[2021-02-27] MEDS: Colchicine 0.6 MG TAB PO SCH ×2 (15:42→20:37)
[2021-02-27] MEDS: Polyvinyl Alcohol 1.4%/Povidone 0.6% Opth Drops EA EYE PRN (20:41)
[2021-02-27] MEDS: Morphine 4 MG/ML VIAL SLOW IVP PRN (23:21)
[2021-02-28] MEDS: VANCOMYCIN 1.25 GM/250 ML BAG 1.25 GM in Premix Bag 1 BAG IVPB SCH ×2 (02:33→14:32)
[2021-02-28] MEDS: Morphine 4 MG/ML VIAL SLOW IVP PRN ×3 (04:21→21:25)
[2021-02-28] MEDS: HYDROcodone/Acetaminophen 5/325 mg Tablet PO PRN ×5 (04:21→20:27)
[2021-02-28] MEDS: Colchicine 0.6 MG TAB PO SCH ×2 (08:33→20:27)
[2021-02-28] MEDS: Metoprolol Tartrate 25 MG TAB PO SCH ×2 (08:33→20:27)
[2021-02-28] MEDS: Ascorbic Acid 500 mg Chewable Tablet PO SCH (08:34)
[2021-02-28] MEDS: Nicotine 14 MG PATCH TD SCH (08:41)
[2021-02-28] MEDS ORDERED: Ketorolac Tromethamine 30 MG/ML VIAL IVP PRN (13:00)
[2021-02-28 21:36] LABS: Vancomycin, Trough 14.9 ug/mL
[2021-03-01] MEDS: HYDROcodone/Acetaminophen 5/325 mg Tablet PO PRN ×4 (01:22→16:22)
[2021-03-01] MEDS: Morphine 4 MG/ML VIAL SLOW IVP PRN ×2 (01:29→13:29)
[2021-03-01] MEDS ORDERED: Vancomycin HCl 1.25 GM in Sodium Chloride 0.9% 250 ML 250 ML IVPB SCH ×2 (02:00→21:00)
[2021-03-01 07:22] LABS: #Basophils 0.1 thou/uL (0.0-0.2); #Eosinphils 0.2 thou/uL (0.0-0.7); #Lymphocytes 2.8 thou/uL (1.20-3.40); #Monocytes 0.4 thou/uL (0.11-0.59); #Neutrophils 2.4 thou/uL (1.40-6.50); %Eosinophils 3.8 % (0.0-10.0); %Lymphocytes 47.2 % (21.0-51.0); %Monocytes 7.2 % (0.0-10.0); %Neutrophils 40.8 % (42.0-75.0); Hemoglobin 16.2 g/dL (14.0-18.0); Mean Corpuscular HGB CONC 33.3 g/dL (32.0-36.0); Mean Corpuscular Hemoglobin 29.3 pg (27.0-31.0); Mean Platelet Volume 7.4 fL (7.4-10.4); Platelet Count 271 thou/uL (130-400); RBC Distribution Width 13.5 % (11.5-14.5); Red Blood Cell (RBC) Count 5.54 mill/uL (4.70-6.10); White Blood Cell (WBC) Count 5.8 thou/uL (4.8-10.8)
[2021-03-01 07:39] LABS: Anion Gap 12 mmol/L (10-20); BUN (Urea Nitrogen) 10 mg/dL (8.4-25.7); Calc. Creatinine Clearance 135 mL/min (70-130); Calcium 10.2 mg/dL (7.8-10.44); Carbon Dioxide 26 mmol/L (22-29); Chloride 105 mmol/L (98-107); Glucose 110 mg/dL (70-105); Potassium 3.7 mmol/L (3.5-5.1); Sodium 139 mmol/L (136-145)
[2021-03-01 08:03] LABS: Hemoglobin A1c 6.5 % (4.0-6.0)
[2021-03-01] MEDS: Colchicine 0.6 MG TAB PO SCH (10:22)
[2021-03-01] MEDS: Metoprolol Tartrate 25 MG TAB PO SCH (10:22)
[2021-03-01] MEDS: Ascorbic Acid 500 mg Chewable Tablet PO SCH (10:22)
[2021-03-01] MEDS: Nicotine 14 MG PATCH TD SCH (10:36)
[2021-03-01 16:13] VITALS: BP 163/112; TEMP 98.1
== END 2021-03-01 16:30 | disposition home or self-care (01) | DRG 516 ==
LOC: ERS 20:03 → SURG A 22:23
PROVIDERS: ADMIT Student in an Organized Health Care Education/Training Program; ATTEND Internal Medicine
PROC: 0PBR0ZZ Excision of Right Thumb Phalanx, Open Approach (ICD-10-PCS; principal; 2021-02-27)
DX: T87.41 Infection of amputation stump, right upper extremity (principal); M86.141 Other acute osteomyelitis, right hand; L02.511 Cutaneous abscess of right hand; Y83.8 Other surgical procedures as the cause of abnormal reaction of the patient, or of later complication, without mention of misadventure at the time of the procedure; Z20.822 Contact with and (suspected) exposure to COVID-19; L03.011 Cellulitis of right finger; I10 Essential (primary) hypertension; B95.61 Methicillin susceptible Staphylococcus aureus infection as the cause of diseases classified elsewhere; F17.210 Nicotine dependence, cigarettes, uncomplicated; E11.65 Type 2 diabetes mellitus with hyperglycemia; E11.69 Type 2 diabetes mellitus with other specified complication; Z86.16 Personal history of COVID-19; Z79.51 Long term (current) use of inhaled steroids; Z79.899 Other long term (current) drug therapy; Z68.39 Body mass index [BMI] 39.0-39.9, adult
CPT/HCPCS: 36415; 76000; 80048; 80053; 80202; 82550; 83036; 83605; 85025; 85652; 86140; 87040; 87070; 87077; 87102; 87186; 87205; 87206; 88305; 88311; C1713; J1580; J1885; J2270; J2370; J2405; J2543; J2704; J3010; J3260; J3370; J3490; J7050; S0020; U0002; U0003; U0005

== ENCOUNTER 2021-04-28 10:19 | Emergency (ER) | payer SELFPAY ==
[2021-04-28 22:54] LABS: SARS-CoV-2 PCR by NAA Not Detected (NotDetected)
== END 2021-04-28 11:20 | disposition home or self-care (01) ==
LOC: ERS 10:19
DX: Z20.822 Contact with and (suspected) exposure to COVID-19 (principal); I10 Essential (primary) hypertension; F17.210 Nicotine dependence, cigarettes, uncomplicated
CPT/HCPCS: 99283; U0003; U0005

== ENCOUNTER 2022-04-16 17:58 | Emergency (ER) | payer OTHER, SELFPAY ==
[2022-04-16] MEDS ORDERED: Acetaminophen 500 MG TAB ONE (19:09)
[2022-04-16 19:14] LABS: #Eosinphils 0.1 thou/uL (0.0-0.7); #Lymphocytes 1.4 thou/uL (1.20-3.40); #Monocytes 0.7 thou/uL (0.11-0.59); #Neutrophils 5.6 thou/uL (1.40-6.50); %Basophils 0.4 % (0.0-1.0); %Eosinophils 1.2 % (0.0-10.0); %Lymphocytes 17.8 % (21.0-51.0); %Monocytes 8.5 % (0.0-10.0); %Neutrophils 72.1 % (42.0-75.0); Hemoglobin 16.5 g/dL (14.0-18.0); Mean Corpuscular HGB CONC 32.2 g/dL (32.0-36.0); Mean Corpuscular Hemoglobin 27.8 pg (27.0-31.0); Mean Corpuscular Volume 86.5 fl (78.0-98.0); Mean Platelet Volume 8.4 fL (7.4-10.4); Platelet Count 223 10x3/uL (130-400); RBC Distribution Width 13.7 % (11.5-14.5); Red Blood Cell (RBC) Count 5.93 mill/uL (4.70-6.10); White Blood Cell (WBC) Count 7.8 10x3/uL (4.8-10.8)
[2022-04-16 20:03] LABS: ALT (SGPT) 27 U/L (8-55); AST (SGOT) 30 U/L (5-34); Albumin 4.2 g/dL (3.5-5.0); Alkaline Phosphatase 85 U/L (40-110); Anion Gap 15 mmol/L (10-20); BUN (Urea Nitrogen) 9 mg/dL (8.4-25.7); Bilirubin, Total 0.6 mg/dL (0.2-1.2); CK (CPK) 641 U/L (30-200); Calc. Creatinine Clearance 0 mL/min (70-130); Calcium 9.8 mg/dL (7.8-10.44); Carbon Dioxide 25 mmol/L (22-29); Chloride 103 mmol/L (98-107); Estimated GFR 58; Globulin 4.2 g/dL (2.4-3.5); Glucose 100 mg/dL (70-105); Potassium 4.9 mmol/L (3.5-5.1); Protein, Total 8.4 g/dL (6.0-8.3); Sodium 138 mmol/L (136-145)
[2022-04-16] MEDS ORDERED: Dexamethasone 4 mg/ml Vial ONE (21:42)
== END 2022-04-16 22:14 | disposition home or self-care (01) ==
LOC: ERS 17:58
DX: J06.9 Acute upper respiratory infection, unspecified (principal); L03.116 Cellulitis of left lower limb; I10 Essential (primary) hypertension; F17.210 Nicotine dependence, cigarettes, uncomplicated
CPT/HCPCS: 36415; 71045; 80053; 82550; 83605; 85025; 87040; 87804; 93005; 96374; J1100

== ENCOUNTER 2022-05-01 16:49 | Emergency (ER) | payer SELFPAY ==
[2022-05-01 18:01] LABS: #Eosinphils 0.2 thou/uL (0.0-0.7); #Lymphocytes 2.8 thou/uL (1.20-3.40); #Monocytes 0.7 thou/uL (0.11-0.59); #Neutrophils 3.9 thou/uL (1.40-6.50); %Basophils 0.5 % (0.0-1.0); %Eosinophils 3.2 % (0.0-10.0); %Lymphocytes 36.6 % (21.0-51.0); %Monocytes 8.8 % (0.0-10.0); Mean Corpuscular HGB CONC 32.4 g/dL (32.0-36.0); Mean Corpuscular Hemoglobin 27.5 pg (27.0-31.0); Mean Corpuscular Volume 84.9 fl (78.0-98.0); Mean Platelet Volume 7.8 fL (7.4-10.4); Platelet Count 254 10x3/uL (130-400); RBC Distribution Width 13.6 % (11.5-14.5); Red Blood Cell (RBC) Count 5.45 mill/uL (4.70-6.10); White Blood Cell (WBC) Count 7.6 10x3/uL (4.8-10.8)
[2022-05-01 18:23] LABS: ALT (SGPT) 19 U/L (8-55); AST (SGOT) 15 U/L (5-34); Albumin 3.5 g/dL (3.5-5.0); Alkaline Phosphatase 83 U/L (40-110); Anion Gap 13 mmol/L (10-20); BUN (Urea Nitrogen) 12 mg/dL (8.4-25.7); Bilirubin, Total 0.3 mg/dL (0.2-1.2); CK (CPK) 550 U/L (30-200); Calc. Creatinine Clearance 0 mL/min (70-130); Carbon Dioxide 23 mmol/L (22-29); Chloride 107 mmol/L (98-107); Estimated GFR 68; Globulin 3.5 g/dL (2.4-3.5); Glucose 171 mg/dL (70-105); Potassium 3.9 mmol/L (3.5-5.1); Sodium 139 mmol/L (136-145)
[2022-05-01] MEDS ORDERED: Acetaminophen/Codeine 30-300mg Tablet ONE (20:09)
== END 2022-05-01 20:50 | disposition home or self-care (01) ==
LOC: ERS 16:49
DX: L03.116 Cellulitis of left lower limb (principal); I10 Essential (primary) hypertension; F17.210 Nicotine dependence, cigarettes, uncomplicated
CPT/HCPCS: 36415; 80053; 82550; 83605; 85025

== ENCOUNTER 2022-06-06 16:07 | Emergency (ER) | payer SELFPAY ==
[2022-06-06] MEDS ORDERED: Ibuprofen 800 MG TAB ONE (19:07)
== END 2022-06-06 19:08 | disposition home or self-care (01) ==
LOC: ERS 16:07
DX: L97.929 Non-pressure chronic ulcer of unspecified part of left lower leg with unspecified severity (principal); I10 Essential (primary) hypertension; F17.210 Nicotine dependence, cigarettes, uncomplicated

== ENCOUNTER 2022-06-29 19:25 | Inpatient (IN) | payer SELFPAY ==
[~2022-06-29 19:25] MED LIST changes: -Iopamidol-370 76% 500 ML 1 ML ONE; +Iopamidol-370 76% 500 ML MDV (1 ML CHARGE) ONE
[2022-06-29 20:00] LABS: #Basophils 0.1 thou/uL (0.0-0.2); #Eosinphils 0.1 thou/uL (0.0-0.7); #Lymphocytes 2.6 thou/uL (1.20-3.40); #Monocytes 0.5 thou/uL (0.11-0.59); #Neutrophils 4.5 thou/uL (1.40-6.50); %Eosinophils 1.9 % (0.0-10.0); %Lymphocytes 33.3 % (21.0-51.0); %Neutrophils 57.8 % (42.0-75.0); Hemoglobin 15.1 g/dL (14.0-18.0); Mean Corpuscular HGB CONC 31.9 g/dL (32.0-36.0); Mean Corpuscular Hemoglobin 27.4 pg (27.0-31.0); Mean Corpuscular Volume 85.8 fl (78.0-98.0); Platelet Count 261 10x3/uL (130-400); RBC Distribution Width 13.9 % (11.5-14.5); Red Blood Cell (RBC) Count 5.52 mill/uL (4.70-6.10); White Blood Cell (WBC) Count 7.8 10x3/uL (4.8-10.8)
[2022-06-29 20:22] LABS: ALT (SGPT) 20 U/L (8-55); AST (SGOT) 13 U/L (5-34); Albumin 3.6 g/dL (3.5-5.0); Alkaline Phosphatase 87 U/L (40-110); Anion Gap 13 mmol/L (10-20); BUN (Urea Nitrogen) 14 mg/dL (8.4-25.7); Bilirubin, Total 0.2 mg/dL (0.2-1.2); Calc. Creatinine Clearance 0 mL/min (70-130); Calcium 9.3 mg/dL (7.8-10.44); Carbon Dioxide 19 mmol/L (22-29); Chloride 110 mmol/L (98-107); Estimated GFR 74; Globulin 3.4 g/dL (2.4-3.5); Glucose 148 mg/dL (70-105); Potassium 3.9 mmol/L (3.5-5.1); Sodium 138 mmol/L (136-145)
[2022-06-29 21:11] LABS: CKMB 4.7 ng/mL (0-6.6)
[2022-06-29] MEDS ORDERED: Cefepime 1 GM VIAL ONE (21:56)
[2022-06-29] MEDS ORDERED: HYDROcodone/Acetaminophen 5/325 mg Tablet ONE (21:56)
[2022-06-29] MEDS ORDERED: hydrALAZINE 20 MG/ML VIAL ONE (21:56)
[2022-06-29] MEDS ORDERED: Vancomycin 1 GM/200 ML (FROZEN) BAG ONE (22:24)
[2022-06-29] MEDS ORDERED: Acetaminophen 325 MG TAB PO PRN (22:32)
[2022-06-29] MEDS ORDERED: Ondansetron PF 4 MG/2 ML Vial IVP PRN (22:32)
[2022-06-29] MEDS ORDERED: Nicotine 14 MG PATCH TD PRN (22:32)
[2022-06-29] MEDS ORDERED: HYDROcodone/Acetaminophen 5/325 mg Tablet PO PRN (22:32)
[2022-06-29] MEDS ORDERED: Ondansetron ODT 4 MG TAB PO PRN (22:32)
[2022-06-29] MEDS ORDERED: Aspirin Chewable 81 MG TAB ONE (22:49)
[2022-06-29] MEDS ORDERED: Labetalol HCl 100 MG/20 ML VIAL ONE (22:49)
[2022-06-30] MEDS ORDERED: Vancomycin 1 GM in Premix Bag 1 BAG IVPB SCH (00:30)
[2022-06-30 01:00] VITALS: BMI 41.2
[2022-06-30 05:38] LABS: #Eosinphils 0.2 thou/uL (0.0-0.7); #Lymphocytes 3.1 thou/uL (1.20-3.40); #Monocytes 0.6 thou/uL (0.11-0.59); #Neutrophils 3.6 thou/uL (1.40-6.50); %Basophils 0.6 % (0.0-1.0); %Eosinophils 2.1 % (0.0-10.0); %Lymphocytes 41.6 % (21.0-51.0); %Monocytes 7.7 % (0.0-10.0); %Neutrophils 48.1 % (42.0-75.0); Hemoglobin 15.2 g/dL (14.0-18.0); Mean Corpuscular HGB CONC 31.4 g/dL (32.0-36.0); Mean Corpuscular Hemoglobin 26.9 pg (27.0-31.0); Mean Corpuscular Volume 85.8 fl (78.0-98.0); Mean Platelet Volume 8.4 fL (7.4-10.4); Platelet Count 256 10x3/uL (130-400); Red Blood Cell (RBC) Count 5.64 mill/uL (4.70-6.10); White Blood Cell (WBC) Count 7.4 10x3/uL (4.8-10.8)
[2022-06-30 05:55] LABS: Anion Gap 12 mmol/L (10-20); BUN (Urea Nitrogen) 14 mg/dL (8.4-25.7); Calc. Creatinine Clearance 134 mL/min (70-130); Calcium 9.7 mg/dL (7.8-10.44); Carbon Dioxide 23 mmol/L (22-29); Chloride 108 mmol/L (98-107); Estimated GFR 77; Glucose 117 mg/dL (70-105); Potassium 3.5 mmol/L (3.5-5.1); Sodium 139 mmol/L (136-145)
[2022-06-30] MEDS ORDERED: Amlodipine 5 MG TAB PO SCH ×2 (09:00→17:45)
[2022-06-30] MEDS ORDERED: Heparin 5,000 UNITS/ML VIAL SC SCH (09:00)
[2022-06-30] MEDS ORDERED: Dextrose 50% Abboject 50 ML SYRINGE SLOW IVP PRN (09:21)
[2022-06-30] MEDS ORDERED: Dextrose 5% in Water 1,000 ML IV PRN (09:21)
[2022-06-30] MEDS ORDERED: HumaLOG 300 UNITS/3 ML VIAL SC PRN ×2 (09:21)
[2022-06-30] MEDS: Ampicillin/Sulbactam 3 GM in Sodium Chloride 0.9% 100 ML IVPB SCH ×3 (10:49→21:49)
[2022-06-30] MEDS ORDERED: Cefepime 1 GM in Sodium Chloride 0.9% 100 ML IVPB SCH (11:00)
[2022-06-30] MEDS: VANCOMYCIN 2 GRAM/500 ML BAG 2 GM in Premix Bag 1 BAG IVPB SCH (13:16)
[2022-06-30] MEDS: HYDROcodone/Acetaminophen 5/325 mg Tablet PO PRN ×2 (15:32→21:42)
[2022-07-01] MEDS: VANCOMYCIN 2 GRAM/500 ML BAG 2 GM in Premix Bag 1 BAG IVPB SCH ×3 (00:08→23:18)
[2022-07-01] MEDS: Ampicillin/Sulbactam 3 GM in Sodium Chloride 0.9% 100 ML IVPB SCH ×4 (03:51→20:46)
[2022-07-01 08:25] LABS: #Eosinphils 0.2 thou/uL (0.0-0.7); #Lymphocytes 2.3 thou/uL (1.20-3.40); #Monocytes 0.5 thou/uL (0.11-0.59); #Neutrophils 3.1 thou/uL (1.40-6.50); %Basophils 0.7 % (0.0-1.0); %Eosinophils 3.7 % (0.0-10.0); %Monocytes 8.6 % (0.0-10.0); Mean Corpuscular HGB CONC 31.6 g/dL (32.0-36.0); Mean Corpuscular Hemoglobin 26.8 pg (27.0-31.0); Mean Corpuscular Volume 84.8 fl (78.0-98.0); Mean Platelet Volume 8.2 fL (7.4-10.4); Platelet Count 263 10x3/uL (130-400); RBC Distribution Width 13.8 % (11.5-14.5); Red Blood Cell (RBC) Count 5.96 mill/uL (4.70-6.10); White Blood Cell (WBC) Count 6.2 10x3/uL (4.8-10.8)
[2022-07-01] MEDS: Amlodipine 10 MG TAB PO SCH (08:38)
[2022-07-01 08:41] LABS: Anion Gap 11 mmol/L (10-20); BUN (Urea Nitrogen) 12 mg/dL (8.4-25.7); Calc. Creatinine Clearance 153 mL/min (70-130); Calcium 9.6 mg/dL (7.8-10.44); Carbon Dioxide 23 mmol/L (22-29); Chloride 108 mmol/L (98-107); Estimated GFR 90; Glucose 97 mg/dL (70-105); Potassium 3.9 mmol/L (3.5-5.1); Sodium 138 mmol/L (136-145)
[2022-07-01] MEDS ORDERED: Amlodipine 5 MG TAB PO SCH (09:00)
[2022-07-01 11:43] LABS: Vancomycin, Trough 14.9 ug/mL
[2022-07-01] MEDS: HYDROcodone/Acetaminophen 5/325 mg Tablet PO PRN ×2 (12:21→20:47)
[2022-07-02] MEDS: HYDROcodone/Acetaminophen 5/325 mg Tablet PO PRN (03:24)
[2022-07-02] MEDS: Ampicillin/Sulbactam 3 GM in Sodium Chloride 0.9% 100 ML IVPB SCH ×2 (03:25→09:42)
[2022-07-02 06:50] LABS: #Basophils 0.1 thou/uL (0.0-0.2); #Eosinphils 0.2 thou/uL (0.0-0.7); #Lymphocytes 2.5 thou/uL (1.20-3.40); #Monocytes 0.5 thou/uL (0.11-0.59); #Neutrophils 3.2 thou/uL (1.40-6.50); %Basophils 0.9 % (0.0-1.0); %Eosinophils 3.3 % (0.0-10.0); %Monocytes 7.7 % (0.0-10.0); %Neutrophils 49.2 % (42.0-75.0); Hemoglobin 16.3 g/dL (14.0-18.0); Mean Corpuscular HGB CONC 32.7 g/dL (32.0-36.0); Mean Corpuscular Volume 85.6 fl (78.0-98.0); Mean Platelet Volume 8.2 fL (7.4-10.4); Platelet Count 252 10x3/uL (130-400); RBC Distribution Width 13.9 % (11.5-14.5); Red Blood Cell (RBC) Count 5.82 mill/uL (4.70-6.10); White Blood Cell (WBC) Count 6.5 10x3/uL (4.8-10.8)
[2022-07-02 07:10] LABS: Anion Gap 13 mmol/L (10-20); BUN (Urea Nitrogen) 13 mg/dL (8.4-25.7); Calc. Creatinine Clearance 148 mL/min (70-130); Calcium 9.7 mg/dL (7.8-10.44); Carbon Dioxide 22 mmol/L (22-29); Chloride 107 mmol/L (98-107); Estimated GFR 87; Glucose 103 mg/dL (70-105); Potassium 4.1 mmol/L (3.5-5.1); Sodium 138 mmol/L (136-145)
[2022-07-02 08:35] VITALS: BP 133/92; TEMP 98.2
[2022-07-02] MEDS: Amlodipine 10 MG TAB PO SCH (08:41)
[2022-07-02] MEDS: VANCOMYCIN 2 GRAM/500 ML BAG 2 GM in Premix Bag 1 BAG IVPB SCH (11:57)
== END 2022-07-02 11:59 | disposition home or self-care (01) | DRG 603 ==
LOC: ERS 19:25 → 2SW 22:44 → OBSVTOIN 06-30 09:47 → T4-A 06-30 16:02
PROVIDERS: ADMIT Family Medicine; ATTEND Family Medicine
DX: L03.116 Cellulitis of left lower limb (principal); Z68.41 Body mass index [BMI] 40.0-44.9, adult; E11.628 Type 2 diabetes mellitus with other skin complications; I10 Essential (primary) hypertension; F17.210 Nicotine dependence, cigarettes, uncomplicated; E66.01 Morbid (severe) obesity due to excess calories; S80.862S Insect bite (nonvenomous), left lower leg, sequela; W57.XXXS Bitten or stung by nonvenomous insect and other nonvenomous arthropods, sequela; Z79.899 Other long term (current) drug therapy; Z90.49 Acquired absence of other specified parts of digestive tract; Z98.890 Other specified postprocedural states; Z82.49 Family history of ischemic heart disease and other diseases of the circulatory system
CPT/HCPCS: 36415; 36416; 75635; 80048; 80053; 80202; 82553; 83036; 83605; 83880; 84484; 85025; 85652; 86140; 87040; 93005; 96365; 96367; 96372; 96374; 96375; 97139; G0378; J0295; J0360; J0692; J1644; J1650; J3370; J3370-JW; J3490; Q9967

== ENCOUNTER 2022-08-19 02:07 | Inpatient (IN) | payer SELFPAY ==
[2022-08-19] MEDS ORDERED: Morphine 4 MG/ML VIAL ONE ×2 (03:00→05:41)
[2022-08-19 03:33] LABS: Hemoglobin 16.3 g/dL (14.0-18.0); Mean Corpuscular HGB CONC 34.2 g/dL (32.0-36.0); Mean Corpuscular Hemoglobin 28.8 pg (27.0-31.0); Mean Corpuscular Volume 84.2 fl (78.0-98.0); Mean Platelet Volume 8.5 fL (7.4-10.4); Platelet Count 216 10x3/uL (130-400); RBC Distribution Width 13.8 % (11.5-14.5); Red Blood Cell (RBC) Count 5.64 mill/uL (4.70-6.10); White Blood Cell (WBC) Count 6.4 10x3/uL (4.8-10.8)
[2022-08-19 03:50] LABS: ALT (SGPT) 27 U/L (8-55); AST (SGOT) 23 U/L (5-34); Alkaline Phosphatase 79 U/L (40-110); Anion Gap 13 mmol/L (10-20); BUN (Urea Nitrogen) 19 mg/dL (8.4-25.7); Bilirubin, Total 0.3 mg/dL (0.2-1.2); CK (CPK) 733 U/L (30-200); Calc. Creatinine Clearance 0 mL/min (70-130); Calcium 10.3 mg/dL (7.8-10.44); Carbon Dioxide 22 mmol/L (22-29); Chloride 108 mmol/L (98-107); Estimated GFR 72; Globulin 3.7 g/dL (2.4-3.5); Glucose 105 mg/dL (70-105); Potassium 4.2 mmol/L (3.5-5.1); Protein, Total 7.7 g/dL (6.0-8.3); Sodium 139 mmol/L (136-145)
[2022-08-19 04:04] LABS: Band 1 % (5-11); Eosinophils 2 % (0-10); Lymphocytes 37 % (21-51); MDiff Complete? YES; Monocytes 8 % (0-10); Neutrophil 51 % (42-75); Reactive Lymphocytes 1 % (0-10)
[2022-08-19] MEDS ORDERED: Piperacillin/Tazobactam 3.375 GM VIAL ONE (04:16)
[2022-08-19 04:32] LABS: CKMB 6.3 ng/mL (0-6.6)
[2022-08-19] MEDS ORDERED: fentaNYL 50 mcg/mL 1 mL Vial ONE (05:44)
[2022-08-19] MEDS ORDERED: Sodium Chloride 0.9% 1,000 ML IV SCH ×2 (06:30→10:15)
[2022-08-19] MEDS ORDERED: Acetaminophen 325 MG TAB PO PRN (06:30)
[2022-08-19] MEDS ORDERED: Ondansetron ODT 4 MG TAB SL PRN (06:30)
[2022-08-19] MEDS ORDERED: Ondansetron PF 4 MG/2 ML Vial IVP PRN (06:30)
[2022-08-19 07:46] VITALS: BMI 40.3
[2022-08-19 08:32] LABS: Troponin I 0.027 ng/mL (< 0.028)
[2022-08-19] MEDS: HYDROcodone/Acetaminophen 5/325 mg Tablet PO PRN ×3 (08:44→22:27)
[2022-08-19] MEDS: Amlodipine 10 MG TAB PO SCH (08:44)
[2022-08-19] MEDS ORDERED: Morphine 4 MG/ML VIAL SLOW IVP PRN (09:32)
[2022-08-19] MEDS ORDERED: Dextrose 50% Abboject 50 ML SYRINGE SLOW IVP PRN (09:49)
[2022-08-19] MEDS ORDERED: Dextrose 5% in Water 1,000 ML IV PRN (09:49)
[2022-08-19] MEDS ORDERED: Insulin Regular 300 UNITS/3 ML VIAL SC PRN ×2 (09:49)
[2022-08-19] MEDS ORDERED: Nitroglycerin 0.4 MG TAB (25 Tab Bottle) SL PRN (09:55)
[2022-08-19] MEDS ORDERED: Aspirin 81 mg Enteric Coated Tablet PO SCH (10:00)
[2022-08-19] MEDS ORDERED: Losartan 25 MG TAB PO SCH (10:00)
[2022-08-19] MEDS ORDERED: Vancomycin 1 GM in Premix Bag 1 BAG IVPB SCH (10:00)
[2022-08-19] MEDS ORDERED: Electrolyte Replacement Protocol 1 EACH FS SCH (10:00)
[2022-08-19] MEDS ORDERED: Iopamidol 370 76% 100 ML VIAL ONE (10:12)
[2022-08-19 11:02] LABS: Troponin I 0.047 ng/mL (< 0.028)
[2022-08-19] MEDS: cefTRIAXone\\ROCEPHIN 2 GM in Sodium Chloride 0.9% 100 ML IVPB SCH (11:43)
[2022-08-19] MEDS: Saccharomyces boulardii 250 MG CAP PO SCH (13:27)
[2022-08-19] MEDS: metroNIDAZOLE 500 MG TAB PO SCH ×2 (15:14→19:52)
[2022-08-19] MEDS: Vancomycin 1.5 GRAM/300 ML BAG 1.5 GM in Premix Bag 1 BAG IVPB SCH (15:17)
[2022-08-19] MEDS: Carvedilol 6.25 MG TAB PO SCH (16:27)
[2022-08-19] MEDS ORDERED: Carvedilol 6.25 MG TAB PO SCH (17:00)
[2022-08-19] MEDS: hydrALAZINE 25 MG TAB PO PRN ×2 (19:52→23:54)
[2022-08-20] MEDS ORDERED: Morphine 2 MG/ML VIAL SLOW IVP PRN (01:01)
[2022-08-20] MEDS ORDERED: Ketorolac Tromethamine 30 MG/ML VIAL IVP SCH (02:15)
[2022-08-20] MEDS: Vancomycin 1.5 GRAM/300 ML BAG 1.5 GM in Premix Bag 1 BAG IVPB SCH ×2 (04:02→17:23)
[2022-08-20] MEDS: HYDROcodone/Acetaminophen 5/325 mg Tablet PO PRN ×3 (04:46→20:52)
[2022-08-20 05:18] LABS: CK (CPK) 370 U/L (30-200); Cardiac Risk 6.3 (Less than 4.5); Cholesterol 195 mg/dl (< 200 Desired); HDL Cholesterol 31 mg/dL (>60 Neg Risk); LDL Cholesterol, Calculated 126 mg/dL; Triglycerides 189 mg/dL (Less than 150)
[2022-08-20] MEDS ORDERED: fentaNYL 50 mcg/mL 1 mL Vial ONE ×5 (07:04→09:27)
[2022-08-20] MEDS ORDERED: hydrALAZINE 20 MG/ML VIAL ONE ×2 (07:05→08:59)
[2022-08-20] MEDS ORDERED: SUGAMMADEX SODIUM 200 MG/2 ML VIAL ONE (07:05)
[2022-08-20] MEDS ORDERED: Famotidine/PF 20 mg/2ml Vial ONE (07:05)
[2022-08-20] MEDS ORDERED: Ondansetron PF 4 MG/2 ML Vial ONE (07:41)
[2022-08-20] MEDS ORDERED: Glycopyrrolate 0.2 MG/ML 5 ML SYRINGE ONE (07:41)
[2022-08-20] MEDS ORDERED: PHENYLEPHRINE-NS 100 MCG/ML 10 ML SYRINGE ONE (07:41)
[2022-08-20] MEDS ORDERED: Lidocaine 1% PF 5 ML VIAL ONE (07:41)
[2022-08-20] MEDS ORDERED: Albuterol HFA (OR) 200 PUFF INH ONE (07:41)
[2022-08-20] MEDS ORDERED: Rocuronium Bromide 10 MG/ML (10ML VIAL) ONE (07:41)
[2022-08-20] MEDS ORDERED: NEOSTIGMINE 3 MG/3 ML SYR 3 MG/3 ML SYRINGE ONE (07:41)
[2022-08-20] MEDS ORDERED: PROPOFOL 200 MG/20 ML VIAL ONE (07:41)
[2022-08-20] MEDS ORDERED: Succinylcholine Chloride 100 MG/5 ML SYRINGE FS ONE (07:41)
[2022-08-20] MEDS ORDERED: Magnesium 2 GM/50 ML(in water) 2 GM in Premix Bag 1 BAG IVPB SCH (08:00)
[2022-08-20] MEDS ORDERED: Bacitracin Zinc Ointment 30 gm TUBE ONE (08:23)
[2022-08-20] MEDS ORDERED: Promethazine HCl 25 MG/ML VIAL IM PRN (08:52)
[2022-08-20] MEDS ORDERED: Ondansetron HCl/PF 4 MG/2 ML Vial IVP PRN (08:52)
[2022-08-20] MEDS ORDERED: PACU-Morphine 4MG/ML VIAL SLOW IVP PRN (08:52)
[2022-08-20] MEDS ORDERED: hydrALAZINE 20 MG/ML VIAL SLOW IVP PRN (08:53)
[2022-08-20 10:14] LABS: #Basophils 0.1 thou/uL (0.0-0.2); #Eosinphils 0.3 thou/uL (0.0-0.7); #Lymphocytes 3.1 thou/uL (1.20-3.40); #Monocytes 0.4 thou/uL (0.11-0.59); #Neutrophils 3.4 thou/uL (1.40-6.50); %Basophils 0.9 % (0.0-1.0); %Eosinophils 3.9 % (0.0-10.0); %Lymphocytes 43.2 % (21.0-51.0); %Monocytes 5.2 % (0.0-10.0); %Neutrophils 46.8 % (42.0-75.0); Hemoglobin 17.1 g/dL (14.0-18.0); Mean Corpuscular HGB CONC 31.8 g/dL (32.0-36.0); Mean Corpuscular Hemoglobin 27.5 pg (27.0-31.0); Mean Corpuscular Volume 86.5 fl (78.0-98.0); Mean Platelet Volume 7.3 fL (7.4-10.4); Platelet Count 269 10x3/uL (130-400); RBC Distribution Width 14.1 % (11.5-14.5); Red Blood Cell (RBC) Count 6.21 mill/uL (4.70-6.10); White Blood Cell (WBC) Count 7.2 10x3/uL (4.8-10.8)
[2022-08-20] MEDS: Carvedilol 6.25 MG TAB PO SCH ×2 (10:22→17:22)
[2022-08-20] MEDS: Amlodipine 10 MG TAB PO SCH (10:22)
[2022-08-20] MEDS: Losartan 25 MG TAB PO SCH (10:23)
[2022-08-20] MEDS: metroNIDAZOLE 500 MG TAB PO SCH ×3 (10:23→20:53)
[2022-08-20] MEDS: Aspirin 81 mg Enteric Coated Tablet PO SCH (10:23)
[2022-08-20 10:36] LABS: Anion Gap 12 mmol/L (10-20); BUN (Urea Nitrogen) 13 mg/dL (8.4-25.7); Calc. Creatinine Clearance 128 mL/min (70-130); Calcium 10.1 mg/dL (7.8-10.44); Carbon Dioxide 25 mmol/L (22-29); Chloride 106 mmol/L (98-107); Estimated GFR 75; Glucose 110 mg/dL (70-105); Potassium 4.7 mmol/L (3.5-5.1); Sodium 138 mmol/L (136-145)
[2022-08-20] MEDS: cefTRIAXone\\ROCEPHIN 2 GM in Sodium Chloride 0.9% 100 ML IVPB SCH (11:18)
[2022-08-20] MEDS: Saccharomyces boulardii 250 MG CAP PO SCH (13:48)
[2022-08-20 16:22] LABS: Vancomycin, Trough 11.8 ug/mL
[2022-08-21] MEDS: Vancomycin 1.5 GRAM/300 ML BAG 1.5 GM in Premix Bag 1 BAG IVPB SCH ×2 (04:54→16:03)
[2022-08-21] MEDS: HYDROcodone/Acetaminophen 5/325 mg Tablet PO PRN (04:56)
[2022-08-21 05:28] LABS: #Basophils 0.1 thou/uL (0.0-0.2); #Eosinphils 0.2 thou/uL (0.0-0.7); #Lymphocytes 2.8 thou/uL (1.20-3.40); #Monocytes 0.4 thou/uL (0.11-0.59); %Basophils 0.7 % (0.0-1.0); %Eosinophils 3.3 % (0.0-10.0); %Lymphocytes 37.3 % (21.0-51.0); %Monocytes 5.9 % (0.0-10.0); %Neutrophils 52.8 % (42.0-75.0); Hemoglobin 16.7 g/dL (14.0-18.0); Mean Corpuscular HGB CONC 33.2 g/dL (32.0-36.0); Mean Corpuscular Hemoglobin 28.2 pg (27.0-31.0); Mean Platelet Volume 8.1 fL (7.4-10.4); Platelet Count 260 10x3/uL (130-400); RBC Distribution Width 13.8 % (11.5-14.5); Red Blood Cell (RBC) Count 5.93 mill/uL (4.70-6.10); White Blood Cell (WBC) Count 7.5 10x3/uL (4.8-10.8)
[2022-08-21 05:33] LABS: Hemoglobin A1c 6.2 % (4.0-6.0)
[2022-08-21 05:47] LABS: Anion Gap 11 mmol/L (10-20); BUN (Urea Nitrogen) 14 mg/dL (8.4-25.7); Calc. Creatinine Clearance 127 mL/min (70-130); Calcium 10.1 mg/dL (7.8-10.44); Carbon Dioxide 22 mmol/L (22-29); Chloride 107 mmol/L (98-107); Estimated GFR 75; Glucose 104 mg/dL (70-105); Potassium 4.3 mmol/L (3.5-5.1); Sodium 136 mmol/L (136-145)
[2022-08-21] MEDS: metroNIDAZOLE 500 MG TAB PO SCH ×3 (08:53→20:52)
[2022-08-21] MEDS: Aspirin 81 mg Enteric Coated Tablet PO SCH (08:53)
[2022-08-21] MEDS: Amlodipine 10 MG TAB PO SCH (08:55)
[2022-08-21] MEDS: Carvedilol 6.25 MG TAB PO SCH ×2 (08:57→16:03)
[2022-08-21] MEDS: Losartan 25 MG TAB PO SCH (08:57)
[2022-08-21] MEDS ORDERED: HYDROcodone/Acetaminophen 5/325 mg Tablet PO PRN (10:16)
[2022-08-21] MEDS: cefTRIAXone\\ROCEPHIN 2 GM in Sodium Chloride 0.9% 100 ML IVPB SCH (12:04)
[2022-08-21] MEDS: HYDROcodone/Acetaminophen 10/325 mg Tablet PO PRN ×2 (13:01→18:29)
[2022-08-21] MEDS: Saccharomyces boulardii 250 MG CAP PO SCH (13:01)
[2022-08-22] MEDS: HYDROcodone/Acetaminophen 10/325 mg Tablet PO PRN ×5 (00:22→21:38)
[2022-08-22 05:38] LABS: #Eosinphils 0.3 thou/uL (0.0-0.7); #Lymphocytes 2.5 thou/uL (1.20-3.40); #Monocytes 0.6 thou/uL (0.11-0.59); #Neutrophils 3.7 thou/uL (1.40-6.50); %Basophils 0.6 % (0.0-1.0); %Eosinophils 4.3 % (0.0-10.0); %Lymphocytes 34.5 % (21.0-51.0); %Monocytes 8.3 % (0.0-10.0); %Neutrophils 52.3 % (42.0-75.0); Hemoglobin 15.2 g/dL (14.0-18.0); Mean Corpuscular HGB CONC 30.1 g/dL (32.0-36.0); Mean Corpuscular Hemoglobin 25.6 pg (27.0-31.0); Mean Corpuscular Volume 85.1 fl (78.0-98.0); Mean Platelet Volume 7.7 fL (7.4-10.4); Platelet Count 266 10x3/uL (130-400); Red Blood Cell (RBC) Count 5.95 mill/uL (4.70-6.10); White Blood Cell (WBC) Count 7.2 10x3/uL (4.8-10.8)
[2022-08-22 05:53] LABS: Anion Gap 12 mmol/L (10-20); BUN (Urea Nitrogen) 18 mg/dL (8.4-25.7); Calc. Creatinine Clearance 141 mL/min (70-130); Calcium 9.9 mg/dL (7.8-10.44); Carbon Dioxide 21 mmol/L (22-29); Chloride 108 mmol/L (98-107); Estimated GFR 84; Glucose 107 mg/dL (70-105); Potassium 4.3 mmol/L (3.5-5.1); Sodium 137 mmol/L (136-145)
[2022-08-22 05:55] LABS: Vancomycin, Trough 10.7 ug/mL
[2022-08-22] MEDS: Vancomycin 1.5 GRAM/300 ML BAG 1.5 GM in Premix Bag 1 BAG IVPB SCH (06:03)
[2022-08-22] MEDS ORDERED: Clindamycin 150 MG CAP PO SCH (07:30)
[2022-08-22] MEDS: Aspirin 81 mg Enteric Coated Tablet PO SCH (08:21)
[2022-08-22] MEDS: metFORMIN 500 MG TAB PO SCH ×2 (08:21→21:32)
[2022-08-22] MEDS: Carvedilol 6.25 MG TAB PO SCH ×2 (08:21→16:25)
[2022-08-22] MEDS: Losartan 25 MG TAB PO SCH (08:24)
[2022-08-22] MEDS: Amlodipine 10 MG TAB PO SCH (08:25)
[2022-08-22] MEDS ORDERED: Non-Formulary Item 1 EACH (Metformin Hcl [Metformin Hcl] 1,000 MG Tablet) PO SCH (09:00)
[2022-08-22] MEDS: Saccharomyces boulardii 250 MG CAP PO SCH (13:28)
[2022-08-22] MEDS: Clindamycin 150 MG CAP PO SCH ×2 (13:28→21:32)
[2022-08-23] MEDS: HYDROcodone/Acetaminophen 10/325 mg Tablet PO PRN ×4 (01:47→14:53)
[2022-08-23 05:27] LABS: #Basophils 0.1 thou/uL (0.0-0.2); #Eosinphils 0.3 thou/uL (0.0-0.7); #Lymphocytes 2.3 thou/uL (1.20-3.40); #Monocytes 0.6 thou/uL (0.11-0.59); #Neutrophils 3.7 thou/uL (1.40-6.50); %Basophils 0.7 % (0.0-1.0); %Eosinophils 4.4 % (0.0-10.0); %Lymphocytes 33.2 % (21.0-51.0); %Monocytes 8.4 % (0.0-10.0); %Neutrophils 53.2 % (42.0-75.0); Hemoglobin 15.4 g/dL (14.0-18.0); Mean Corpuscular HGB CONC 31.3 g/dL (32.0-36.0); Mean Corpuscular Hemoglobin 26.7 pg (27.0-31.0); Mean Corpuscular Volume 85.3 fl (78.0-98.0); Mean Platelet Volume 7.7 fL (7.4-10.4); Platelet Count 258 10x3/uL (130-400); Red Blood Cell (RBC) Count 5.75 mill/uL (4.70-6.10)
[2022-08-23 05:49] LABS: Anion Gap 12 mmol/L (10-20); BUN (Urea Nitrogen) 19 mg/dL (8.4-25.7); Calc. Creatinine Clearance 130 mL/min (70-130); Calcium 10.1 mg/dL (7.8-10.44); Carbon Dioxide 21 mmol/L (22-29); Chloride 109 mmol/L (98-107); Estimated GFR 76; Glucose 108 mg/dL (70-105); Potassium 4.1 mmol/L (3.5-5.1); Sodium 138 mmol/L (136-145)
[2022-08-23] MEDS: Clindamycin 150 MG CAP PO SCH ×2 (06:04→14:52)
[2022-08-23] MEDS: Losartan 25 MG TAB PO SCH (09:05)
[2022-08-23] MEDS: metFORMIN 500 MG TAB PO SCH (09:05)
[2022-08-23] MEDS: Amlodipine 10 MG TAB PO SCH (09:05)
[2022-08-23] MEDS: Aspirin 81 mg Enteric Coated Tablet PO SCH (09:05)
[2022-08-23] MEDS: Carvedilol 6.25 MG TAB PO SCH (09:06)
[2022-08-23] MEDS ORDERED: Morphine 4 MG/ML VIAL SLOW IVP SCH (11:30)
[2022-08-23] MEDS: Saccharomyces boulardii 250 MG CAP PO SCH (14:52)
[2022-08-23 16:10] VITALS: BP 133/86; TEMP 98.6
== END 2022-08-23 18:15 | disposition home or self-care (01) | DRG 593 ==
LOC: ERS 02:07 → 2NO 05:25 → OBSVTOIN 09:32 → SURG A 08-20 18:35
PROVIDERS: ADMIT Hospitalist; ATTEND Hospitalist
PROC: 0HBLXZZ Excision of Left Lower Leg Skin, External Approach (ICD-10-PCS; principal; 2022-08-20)
PROC: 0HBLXZX Excision of Left Lower Leg Skin, External Approach, Diagnostic (ICD-10-PCS; 2022-08-20)
DX: L97.929 Non-pressure chronic ulcer of unspecified part of left lower leg with unspecified severity (principal); L03.116 Cellulitis of left lower limb; Z68.41 Body mass index [BMI] 40.0-44.9, adult; I10 Essential (primary) hypertension; F17.210 Nicotine dependence, cigarettes, uncomplicated; R94.31 Abnormal electrocardiogram [ECG] [EKG]; R79.89 Other specified abnormal findings of blood chemistry; I16.0 Hypertensive urgency; E66.9 Obesity, unspecified; Z79.899 Other long term (current) drug therapy; Z79.84 Long term (current) use of oral hypoglycemic drugs; Z90.49 Acquired absence of other specified parts of digestive tract; Z98.890 Other specified postprocedural states; Z82.49 Family history of ischemic heart disease and other diseases of the circulatory system
CPT/HCPCS: 36415; 36416; 71045; 80048; 80053; 80061; 80202; 82550; 82553; 83036; 83605; 83735; 84484; 85025; 85652; 86140; 87040; 88305; 93005; 93306; 94760; 96365; 96375; 97139; G0378; J0360; J0696; J1885; J2270; J2405; J2543; J2704; J3010; J3370; J3475; J3490; J7030; J7050; Q9967; S0028

== ENCOUNTER 2022-10-03 14:39 | Observation (INO) | payer OTHER, SELFPAY ==
[2022-10-03 15:10] LABS: #Eosinphils 0.2 thou/uL (0.0-0.7); #Monocytes 0.8 thou/uL (0.11-0.59); #Neutrophils 5.9 thou/uL (1.40-6.50); %Basophils 0.4 % (0.0-1.0); %Eosinophils 1.8 % (0.0-10.0); %Lymphocytes 28.1 % (21.0-51.0); %Monocytes 8.7 % (0.0-10.0); %Neutrophils 60.4 % (42.0-75.0); Mean Corpuscular HGB CONC 32.8 g/dL (32.0-36.0); Mean Corpuscular Hemoglobin 27.2 pg (27.0-31.0); Mean Platelet Volume 9.4 fL (7.4-10.4); Platelet Count 305 10x3/uL (130-400); RBC Distribution Width 15.8 % (11.5-14.5); Red Blood Cell (RBC) Count 5.52 mill/uL (4.70-6.10); White Blood Cell (WBC) Count 9.7 10x3/uL (4.8-10.8)
[2022-10-03] MEDS ORDERED: Aspirin Chewable 81 MG TAB ONE (15:25)
[2022-10-03 15:54] LABS: CKMB 3.8 ng/mL (0-6.6)
[2022-10-03 16:01] LABS: ALT (SGPT) 18 U/L (8-55); AST (SGOT) 13 U/L (5-34); Albumin 3.7 g/dL (3.5-5.0); Alkaline Phosphatase 89 U/L (40-110); Anion Gap 16 mmol/L (10-20); BUN (Urea Nitrogen) 15 mg/dL (8.4-25.7); Bilirubin, Total 0.4 mg/dL (0.2-1.2); Calc. Creatinine Clearance 0 mL/min (70-130); Calcium 9.9 mg/dL (7.8-10.44); Carbon Dioxide 20 mmol/L (22-29); Chloride 110 mmol/L (98-107); Estimated GFR 63; Globulin 3.8 g/dL (2.4-3.5); Glucose 152 mg/dL (70-105); Potassium 3.7 mmol/L (3.5-5.1); Protein, Total 7.5 g/dL (6.0-8.3); Sodium 142 mmol/L (136-145)
[2022-10-03] MEDS ORDERED: Acetaminophen 325 MG TAB PO PRN (17:52)
[2022-10-03] MEDS ORDERED: Ondansetron ODT 4 MG TAB PO PRN (17:52)
[2022-10-03] MEDS ORDERED: Dextrose 50% Abboject 50 ML SYRINGE SLOW IVP PRN (17:52)
[2022-10-03] MEDS ORDERED: Nitroglycerin 0.4 MG TAB (25 Tab Bottle) SL PRN (17:52)
[2022-10-03] MEDS ORDERED: Glucagon 1 MG/ML KIT IM PRN (17:52)
[2022-10-03] MEDS ORDERED: HumaLOG 300 UNITS/3 ML VIAL SC PRN ×2 (17:52)
[2022-10-03] MEDS ORDERED: Calcium Carbonate 500 MG ChewTAB PO PRN (17:52)
[2022-10-03] MEDS ORDERED: Ondansetron PF 4 MG/2 ML Vial IVP PRN (17:52)
[2022-10-03] MEDS ORDERED: Dextrose 5% in Water 1,000 ML IV PRN (17:52)
[2022-10-03] MEDS ORDERED: Lactated Ringer's 1,000 ML IV SCH (18:00)
[2022-10-03 19:51] VITALS: BMI 39.4
[2022-10-03] MEDS: HYDROcodone/Acetaminophen 5/325 mg Tablet PO PRN (20:19)
[2022-10-03] MEDS: Nicotine 14 MG PATCH TD SCH (20:21)
[2022-10-03] MEDS: Heparin 5,000 UNITS/ML VIAL SC SCH (20:24)
[2022-10-03 21:19] LABS: Bacteria/HPF None Seen HPF (None Seen); Bilirubin Negative (Negative); Blood, Urine Negative (Negative); CAUTI Indications for Culture Alt mental st,lethar; Clarity Clear (Clear); Glucose, Urine (Dipstick) Normal (Negative); Ketone, Urine Negative (Negative); Leukocyte Negative Leu/uL (Negative); Nitrite Negative (Negative); Protein, Urine (Dipstick) 200 mg/dL (Neg-Trace); RBC/HPF 0-3 HPF (0-3); Specific Gravity, Urine 1.031 (1.002-1.036); Squamous Epithelial 0-3 HPF (0-3); WBC/HPF 0-3 HPF (0-3); pH, Urine 5.5 (5.0-9.0)
[2022-10-03 21:27] LABS: Amphetamine Not Detected (NotDetected); Barbiturates Screen Not Detected (NotDetected); Benzodiazepine Screen Not Detected (NotDetected); Cocaine Metabolite Screen Detected (NotDetected); Methadone Not Detected (NotDetected); Methamphetamine Not Detected (NotDetected); Opiate Screen Not Detected (NotDetected); Oxycodone Screen Not Detected (NotDetected); Phencyclidine (PCP) Not Detected (NotDetected); THC/Cannabinoid Screen Not Detected (NotDetected); Tricyclic Screen Not Detected (NotDetected)
[2022-10-03 21:32] LABS: Urine Culture Reflex No No
[2022-10-03 22:24] LABS: Troponin I 0.031 ng/mL (< 0.028)
[2022-10-03 22:49] LABS: SARS-CoV-2 NAA Rapid Test Not Detected (NotDetected)
[2022-10-04] MEDS ORDERED: Amlodipine 10 MG TAB PO SCH ×2 (04:00→09:00)
[2022-10-04] MEDS ORDERED: guaiFENesin ER 600 MG TAB PO SCH (04:15)
[2022-10-04] MEDS: HYDROcodone/Acetaminophen 5/325 mg Tablet PO PRN (04:15)
[2022-10-04 04:58] LABS: Hemoglobin 15.1 g/dL (14.0-18.0); Mean Corpuscular HGB CONC 31.9 g/dL (32.0-36.0); Mean Corpuscular Volume 84.6 fl (78.0-98.0); Mean Platelet Volume 9.5 fL (7.4-10.4); Platelet Count 283 10x3/uL (130-400); RBC Distribution Width 15.9 % (11.5-14.5); White Blood Cell (WBC) Count 7.6 10x3/uL (4.8-10.8)
[2022-10-04 05:24] LABS: Anion Gap 9 mmol/L (10-20); BUN (Urea Nitrogen) 15 mg/dL (8.4-25.7); Calc. Creatinine Clearance 133 mL/min (70-130); Calcium 9.5 mg/dL (7.8-10.44); Carbon Dioxide 24 mmol/L (22-29); Cardiac Risk 6.6 (Less than 4.5); Chloride 108 mmol/L (98-107); Cholesterol 192 mg/dl (< 200 Desired); Estimated GFR 80; Glucose 123 mg/dL (70-105); HDL Cholesterol 29 mg/dL (>60 Neg Risk); LDL Cholesterol, Calculated 116 mg/dL; Potassium 4.1 mmol/L (3.5-5.1); Sodium 137 mmol/L (136-145); Triglycerides 237 mg/dL (Less than 150)
[2022-10-04 05:51] LABS: Delete Auto Diff?? YES; Manual Diff?? YES
[2022-10-04 06:53] LABS: Band 5 % (5-11); CellaVision Operator ID LAB.JMM; Eosinophils 3 % (0-10); Large Platelets 2.6 % (0-5); Lymphocytes 30 % (21-51); Macrocytosis SLIGHT = 6-15 cells HPF (0-5); Monocytes 8 % (0-10); Neutrophil 52 % (42-75); Platelet Adequacy Comment Platelets Normal; Reactive Lymphocytes 1 % (0-10); Total Cell Count 115
[2022-10-04] MEDS ORDERED: metFORMIN 500 MG TAB PO SCH (09:00)
[2022-10-04] MEDS ORDERED: Losartan 25 MG TAB PO SCH (09:00)
[2022-10-04] MEDS ORDERED: Aspirin Chewable 81 MG TAB PO SCH (09:00)
[2022-10-04] MEDS: Heparin 5,000 UNITS/ML VIAL SC SCH (15:09)
[2022-10-04] MEDS: Carvedilol 6.25 MG TAB PO SCH ×2 (15:43→16:04)
[2022-10-04] MEDS: Nicotine 14 MG PATCH TD SCH (18:00)
[2022-10-04 19:28] VITALS: BP 148/89; TEMP 98
[2022-10-04] MEDS ORDERED: Atorvastatin Calcium 40 MG TAB PO SCH (21:00)
[2022-10-05] MEDS ORDERED: Amlodipine 10 MG TAB PO SCH (09:00)
== END 2022-10-04 20:07 | disposition home or self-care (01) ==
LOC: ERS 14:39 → 2SW 17:40
PROVIDERS: ADMIT Family Medicine; ATTEND Family Medicine
DX: R07.89 Other chest pain (principal); R55 Syncope and collapse; I10 Essential (primary) hypertension; L97.929 Non-pressure chronic ulcer of unspecified part of left lower leg with unspecified severity; E11.621 Type 2 diabetes mellitus with foot ulcer; N17.9 Acute kidney failure, unspecified; E66.9 Obesity, unspecified; F17.210 Nicotine dependence, cigarettes, uncomplicated; Z68.39 Body mass index [BMI] 39.0-39.9, adult; Z79.899 Other long term (current) drug therapy; Z20.822 Contact with and (suspected) exposure to COVID-19; Z79.84 Long term (current) use of oral hypoglycemic drugs
CPT/HCPCS: 36415; 36416; 71045; 78452; 80048; 80053; 80061; 80306; 81001; 82553; 83735; 84443; 84484; 85025; 93005; 93017; 93880; 94760; 97139; A9500; G0378; J0153; J1644; J7120

== ENCOUNTER 2022-11-08 02:38 | Emergency (ER) | payer SELFPAY ==
[2022-11-08] MEDS ORDERED: Carvedilol 6.25 MG TAB PO SCH (03:30)
[2022-11-08] MEDS ORDERED: Losartan 25 MG TAB PO SCH (03:30)
[2022-11-08] MEDS ORDERED: Acetaminophen 500 MG TAB ONE (03:50)
== END 2022-11-08 05:22 | disposition home or self-care (01) ==
LOC: ERS 02:38
DX: I10 Essential (primary) hypertension (principal); F17.210 Nicotine dependence, cigarettes, uncomplicated; E11.9 Type 2 diabetes mellitus without complications; Z79.899 Other long term (current) drug therapy; Z79.84 Long term (current) use of oral hypoglycemic drugs
CPT/HCPCS: 99283

== ENCOUNTER 2023-02-05 05:57 | Inpatient (IN) | payer SELFPAY ==
[2023-02-05 07:10] LABS: #Eosinphils 0.1 thou/uL (0.0-0.7); #Monocytes 0.7 thou/uL (0.11-0.59); #Neutrophils 7.8 thou/uL (1.40-6.50); %Basophils 0.3 % (0.0-1.0); %Lymphocytes 20.5 % (21.0-51.0); %Monocytes 6.1 % (0.0-10.0); %Neutrophils 71.8 % (42.0-75.0); Hematocrit 51.9 % (42.0-52.0); Hemoglobin 16.6 g/dL (14.0-18.0); Mean Corpuscular Hemoglobin 26.9 pg (27.0-31.0); Mean Corpuscular Volume 84.3 fl (78.0-98.0); Mean Platelet Volume 10.2 fL (7.4-10.4); Platelet Count 273 10x3/uL (130-400); RBC Distribution Width 17.4 % (11.5-14.5); Red Blood Cell (RBC) Count 6.16 mill/uL (4.70-6.10); White Blood Cell (WBC) Count 10.9 10x3/uL (4.8-10.8)
[2023-02-05] MEDS ORDERED: Vancomycin 1 GM/200 ML (FROZEN) BAG ONE (07:26)
[2023-02-05] MEDS ORDERED: Cefepime 1 GM VIAL ONE (07:28)
[2023-02-05] MEDS ORDERED: Sodium Chloride 0.9% 100 ML ONE (07:31)
[2023-02-05 07:52] LABS: ALT (SGPT) 22 U/L (8-55); AST (SGOT) 17 U/L (5-34); Albumin 4.6 g/dL (3.5-5.0); Alkaline Phosphatase 87 U/L (40-110); Anion Gap 13 mmol/L (10-20); BUN (Urea Nitrogen) 13 mg/dL (8.4-25.7); Bilirubin, Total 0.4 mg/dL (0.2-1.2); Calc. Creatinine Clearance 0 mL/min (70-130); Calcium 10.7 mg/dL (7.8-10.44); Carbon Dioxide 23 mmol/L (22-29); Chloride 108 mmol/L (98-107); Estimated GFR 70; Globulin 3.7 g/dL (2.4-3.5); Glucose 124 mg/dL (70-105); Potassium 4.1 mmol/L (3.5-5.1); Protein, Total 8.3 g/dL (6.0-8.3); Sodium 140 mmol/L (136-145)
[2023-02-05] MEDS ORDERED: Losartan 25 MG TAB ONE (07:54)
[2023-02-05] MEDS ORDERED: Carvedilol 6.25 MG TAB ONE (07:54)
[2023-02-05] MEDS ORDERED: traMADol HCl 50 MG TAB ONE (07:55)
[2023-02-05 08:05] LABS: Troponin I 0.053 ng/mL (< 0.028)
[2023-02-05] MEDS ORDERED: Aspirin Chewable 81 MG TAB ONE (09:08)
[2023-02-05] MEDS ORDERED: Ondansetron PF 4 MG/2 ML Vial IVP PRN (09:19)
[2023-02-05] MEDS ORDERED: Senokot S 8.6-50 MG TAB PO PRN (09:19)
[2023-02-05] MEDS ORDERED: Calcium Carbonate 500 MG ChewTAB PO PRN (09:19)
[2023-02-05] MEDS ORDERED: Acetaminophen 325 MG TAB PO PRN (09:19)
[2023-02-05] MEDS ORDERED: Dextrose 5% in Water 1,000 ML IV PRN (09:24)
[2023-02-05] MEDS ORDERED: Dextrose 50% Abboject 50 ML SYRINGE SLOW IVP PRN (09:24)
[2023-02-05] MEDS ORDERED: HumaLOG 300 UNITS/3 ML VIAL SC PRN ×2 (09:24)
[2023-02-05] MEDS ORDERED: Glucagon 1 MG/ML KIT IM PRN (09:24)
[2023-02-05] MEDS ORDERED: Ketorolac Tromethamine 30 MG/ML VIAL ONE (09:30)
[2023-02-05] MEDS ORDERED: Amlodipine 5 MG TAB PO SCH (10:00)
[2023-02-05] MEDS ORDERED: Thiamine 100 MG TAB PO SCH (10:00)
[2023-02-05] MEDS ORDERED: hydrALAZINE 20 MG/ML VIAL SLOW IVP PRN (10:00)
[2023-02-05] MEDS ORDERED: VANCOMYCIN IVPB PRN (10:03)
[2023-02-05 10:36] LABS: Troponin I 0.062 ng/mL (< 0.028)
[2023-02-05 10:58] LABS: Amphetamine Not Detected (NotDetected); Barbiturates Screen Not Detected (NotDetected); Benzodiazepine Screen Not Detected (NotDetected); Cocaine Metabolite Screen Detected (NotDetected); Methadone Not Detected (NotDetected); Methamphetamine Not Detected (NotDetected); Opiate Screen Not Detected (NotDetected); Oxycodone Screen Not Detected (NotDetected); Phencyclidine (PCP) Not Detected (NotDetected); THC/Cannabinoid Screen Not Detected (NotDetected); Tricyclic Screen Not Detected (NotDetected)
[2023-02-05 11:51] VITALS: BMI 38.8
[2023-02-05] MEDS ORDERED: Amlodipine 5 MG TAB ONE (12:02)
[2023-02-05] MEDS ORDERED: Thiamine 100 MG TAB ONE (12:02)
[2023-02-05] MEDS ORDERED: Vancomycin 1 GM in Premix 1 BAG IVPB SCH (12:15)
[2023-02-05] MEDS: Nicotine 14 MG PATCH TD SCH (17:20)
[2023-02-05] MEDS: Carvedilol 6.25 MG TAB PO SCH (17:23)
[2023-02-05] MEDS: Atorvastatin Calcium 40 MG TAB PO SCH (20:28)
[2023-02-05] MEDS: Vancomycin (BATCH) 1.25 GM in Premix 1 BAG IVPB SCH (20:28)
[2023-02-06 05:40] LABS: #Eosinphils 0.2 thou/uL (0.0-0.7); #Monocytes 0.4 thou/uL (0.11-0.59); #Neutrophils 3.8 thou/uL (1.40-6.50); %Basophils 0.4 % (0.0-1.0); %Eosinophils 3.3 % (0.0-10.0); %Lymphocytes 33.6 % (21.0-51.0); %Monocytes 6.2 % (0.0-10.0); %Neutrophils 56.2 % (42.0-75.0); Hematocrit 50.2 % (42.0-52.0); Mean Corpuscular HGB CONC 31.9 g/dL (32.0-36.0); Mean Corpuscular Hemoglobin 26.5 pg (27.0-31.0); Mean Corpuscular Volume 83.1 fl (78.0-98.0); Mean Platelet Volume 10.9 fL (7.4-10.4); Platelet Count 257 10x3/uL (130-400); RBC Distribution Width 17.1 % (11.5-14.5); Red Blood Cell (RBC) Count 6.04 mill/uL (4.70-6.10); White Blood Cell (WBC) Count 6.8 10x3/uL (4.8-10.8)
[2023-02-06 06:26] LABS: ALT (SGPT) 23 U/L (8-55); AST (SGOT) 15 U/L (5-34); Alkaline Phosphatase 79 U/L (40-110); Anion Gap 18 mmol/L (10-20); BUN (Urea Nitrogen) 13 mg/dL (8.4-25.7); Bilirubin, Total 0.5 mg/dL (0.2-1.2); Calc. Creatinine Clearance 135 mL/min (70-130); Calcium 9.9 mg/dL (7.8-10.44); Carbon Dioxide 19 mmol/L (22-29); Chloride 107 mmol/L (98-107); Estimated GFR 85; Glucose 131 mg/dL (70-105); Potassium 4.6 mmol/L (3.5-5.1); Sodium 139 mmol/L (136-145)
[2023-02-06] MEDS: traMADol HCl 50 MG TAB PO PRN (10:15)
[2023-02-06] MEDS: Amlodipine 5 MG TAB PO SCH (10:17)
[2023-02-06] MEDS: Aspirin Chewable 81 MG TAB PO SCH (10:17)
[2023-02-06] MEDS: Thiamine 100 MG TAB PO SCH (10:18)
[2023-02-06] MEDS: Folic Acid 1 MG TAB PO SCH (10:18)
[2023-02-06] MEDS: Carvedilol 6.25 MG TAB PO SCH ×2 (10:18→23:21)
[2023-02-06] MEDS: Vancomycin (BATCH) 1.25 GM in Premix 1 BAG IVPB SCH ×3 (10:19→22:07)
[2023-02-06] MEDS: Ketorolac Tromethamine 30 MG/ML VIAL IVP PRN ×2 (12:04→22:21)
[2023-02-06] MEDS: Nicotine 14 MG PATCH TD SCH (12:05)
[2023-02-06] MEDS: Atorvastatin Calcium 40 MG TAB PO SCH (22:03)
[2023-02-07] MEDS: traMADol HCl 50 MG TAB PO PRN (03:45)
[2023-02-07] MEDS: Ketorolac Tromethamine 30 MG/ML VIAL IVP PRN (06:16)
[2023-02-07 07:45] VITALS: TEMP 97.9
[2023-02-07] MEDS: Aspirin Chewable 81 MG TAB PO SCH (09:10)
[2023-02-07] MEDS: Carvedilol 6.25 MG TAB PO SCH (09:11)
[2023-02-07] MEDS: Folic Acid 1 MG TAB PO SCH (09:11)
[2023-02-07] MEDS: Thiamine 100 MG TAB PO SCH (09:11)
[2023-02-07] MEDS: Amlodipine 5 MG TAB PO SCH (09:11)
[2023-02-07 10:10] LABS: Vancomycin, Trough 8.4 ug/mL
[2023-02-07 11:36] VITALS: BP 167/114
[2023-02-07] MEDS: Nicotine 14 MG PATCH TD SCH (12:09)
[2023-02-07] MEDS: Vancomycin (BATCH) 1.25 GM in Premix 1 BAG IVPB SCH (12:10)
[2023-02-08] MEDS ORDERED: FLU VACC QS2023-24(6MOS UP)/PF 60 MCG/0.5 ML SYRINGE IM ONE (09:00)
== END 2023-02-07 14:37 | disposition home or self-care (01) | DRG 300 ==
LOC: ERS 05:57 → SUATTDRO 05:57 → ERHOLD 09:10 → 2SW 15:30 → OBSVTOIN 02-06 10:12 → SURG B 02-06 20:06
PROVIDERS: ADMIT Internal Medicine; ATTEND Internal Medicine
DX: I83.029 Varicose veins of left lower extremity with ulcer of unspecified site (principal); L97.929 Non-pressure chronic ulcer of unspecified part of left lower leg with unspecified severity; I10 Essential (primary) hypertension; F14.10 Cocaine abuse, uncomplicated; Z79.899 Other long term (current) drug therapy; Z79.82 Long term (current) use of aspirin; E78.5 Hyperlipidemia, unspecified; F17.210 Nicotine dependence, cigarettes, uncomplicated
CPT/HCPCS: 36415; 36416; 80053; 80202; 80306; 83605; 84145; 84484; 85025; 86140; 93005; 96365; 96366; 96368; 96375; 97139; G0378; J0360; J0692; J1885; J3370; J3370-JW; J3490

== ENCOUNTER 2023-03-15 13:20 | Emergency (ER) | payer SELFPAY ==
[2023-03-15 14:56] LABS: #Eosinphils 0.1 thou/uL (0.0-0.7); #Monocytes 0.5 thou/uL (0.11-0.59); #Neutrophils 3.4 thou/uL (1.40-6.50); %Basophils 0.3 % (0.0-1.0); %Eosinophils 1.1 % (0.0-10.0); %Lymphocytes 36.1 % (21.0-51.0); %Monocytes 7.3 % (0.0-10.0); %Neutrophils 54.7 % (42.0-75.0); Hematocrit 48.6 % (42.0-52.0); Hemoglobin 15.7 g/dL (14.0-18.0); Mean Corpuscular HGB CONC 32.3 g/dL (32.0-36.0); Mean Corpuscular Hemoglobin 26.7 pg (27.0-31.0); Mean Corpuscular Volume 82.8 fl (78.0-98.0); Mean Platelet Volume 10.1 fL (7.4-10.4); Platelet Count 277 10x3/uL (130-400); RBC Distribution Width 16.5 % (11.5-14.5); Red Blood Cell (RBC) Count 5.87 mill/uL (4.70-6.10); White Blood Cell (WBC) Count 6.2 10x3/uL (4.8-10.8)
[2023-03-15 15:07] LABS: PTT 26.3 sec (22.9-36.1); Prothrombin Time 13.1 sec (12.0-14.7)
[2023-03-15] MEDS ORDERED: Cefepime 2 GM VIAL ONE (15:29)
[2023-03-15] MEDS ORDERED: Morphine 4 MG/ML VIAL ONE ×3 (15:29→15:35)
[2023-03-15] MEDS ORDERED: Ketorolac Tromethamine 30 MG/ML VIAL ONE (15:29)
[2023-03-15 15:32] LABS: ALT (SGPT) 14 U/L (8-55); AST (SGOT) 11 U/L (5-34); Albumin 3.6 g/dL (3.5-5.0); Alkaline Phosphatase 84 U/L (40-110); Anion Gap 12 mmol/L (10-20); BUN (Urea Nitrogen) 10 mg/dL (8.4-25.7); Bilirubin, Total 0.3 mg/dL (0.2-1.2); Calc. Creatinine Clearance 0 mL/min (70-130); Calcium 9.4 mg/dL (7.6-10.4); Carbon Dioxide 23 mmol/L (22-29); Chloride 108 mmol/L (98-107); Estimated GFR 80; Globulin 3.6 g/dL (2.4-3.5); Glucose 131 mg/dL (70-105); Protein, Total 7.2 g/dL (6.0-8.3); Sodium 139 mmol/L (136-145)
[2023-03-15] MEDS ORDERED: Vancomycin 1 GM/200 ML (FROZEN) BAG ONE (15:36)
== END 2023-03-15 17:44 | disposition home or self-care (01) ==
LOC: ERS 13:20
DX: L08.9 Local infection of the skin and subcutaneous tissue, unspecified (principal); L03.116 Cellulitis of left lower limb; E11.9 Type 2 diabetes mellitus without complications; I10 Essential (primary) hypertension; F17.210 Nicotine dependence, cigarettes, uncomplicated; Z79.84 Long term (current) use of oral hypoglycemic drugs; Z79.899 Other long term (current) drug therapy
CPT/HCPCS: 80053; 83605; 85025; 85610; 85730; 87040; 96365; 96367; 96375; J0692; J1885; J2270; J3370-JW